=== PATIENT | male | born 1950 | race Caucasian/White ===

== ENCOUNTER 2016-11-21 00:42 | Emergency (ER) | payer MEDICARE ==
[2016-11-21] MEDS ORDERED: IPRATROPIUM/ALBUTEROL 0.5-2.5 MG/3 ML AMPUL NEB ONE ×2 (01:02→03:03)
--- NOTE | 2016-11-21 01:06 | ER Document Report ---
ED Medical Screen (RME) - General Stated Complaint: CHEST PAIN Time seen by provider: 01:00 Notes: 66 year old male, chief complaint of chest pain worse over the past 2 days, present intermittently since a rib injury on Nina. States he got dizzy prior to arrival but did not pass out. Short of breath with some wheezing, hx COPD, liver cirrhosis, chronic back pain (on pain management). Current chest pain with cough or deep breath. - Related Data Allergies/Adverse Reactions: No Known Allergies Allergy (Verified 11/21/16 01:01) Physical Exam - Respiratory Respiratory status: No respiratory distress Breath sounds: Decreased air movement, Wheezing Course - Re-evaluation Re-evalutation: Patient reports he cannot take aspirin and refuses.
[2016-11-21 02:03] LABS: ABSOLUTE BASOPHILS # (AUTO) 0.1 10^3/uL (0.0-0.2); ABSOLUTE EOSINOPHILS # (AUTO) 0.3 10^3/uL (0.0-0.6); ABSOLUTE LYMPHOCYTES (AUTO) 1.1 10^3/uL (0.5-4.7); ABSOLUTE MONOCYTES (AUTO) 0.6 10^3/uL (0.1-1.4); ABSOLUTE NEUT (AUTO) 4.3 10^3/uL (1.7-8.2); EOSINOPHILS % (AUTO) 3.9 % (0-6); HEMATOCRIT 36.3 % (37.9-51.0); HEMOGLOBIN 12.2 g/dL (13.5-17.0); HGB HCT DIFFERENCE 0.3; LYMPHOCYTES % (AUTO) 17.4 % (13-45); MEAN CORPUSCULAR HEMOGLOBIN 31.1 pg (27.0-33.4); MEAN CORPUSCULAR HGB CONC 33.5 g/dL (32.0-36.0); MEAN CORPUSCULAR VOLUME 93 fl (80-97); RED BLOOD COUNT 3.92 10^6/uL (4.35-5.55); RED CELL DISTRIBUTION WIDTH 13.4 % (11.5-14.0); SEGMENTED NEUTROPHILS % (AUTO) 67.7 % (42-78); WHITE BLOOD COUNT 6.4 10^3/uL (4.0-10.5)
[2016-11-21 02:25] LABS: ALANINE AMINOTRANSFERASE 70 U/L (21-72); ALBUMIN 3.3 g/dL (3.5-5.0); ALKALINE PHOSPHATASE 70 U/L (38-126); ANION GAP 5 (5-19); ASPARTATE AMINO TRANSFERASE 85 U/L (17-59); BILIRUBIN,TOTAL 0.7 mg/dL (0.2-1.3); BLOOD UREA NITROGEN 16 mg/dL (7-20); CALCIUM 8.8 mg/dL (8.4-10.2); CARBON DIOXIDE 27 mmol/L (22-30); CHLORIDE 97 mmol/L (98-107); CREATINE KINASE 31 U/L (55-170); CREATININE RESULT 0.64 mg/dL (0.52-1.25); GLUCOSE 90 mg/dL (75-110); POTASSIUM 4.5 mmol/L (3.6-5.0); SODIUM 129.3 mmol/L (137-145); TOTAL PROTEIN 6.6 g/dL (6.3-8.2)
[2016-11-21 02:48] LABS: CREATINE KINASE MB 0.57 ng/mL (<4.55)
[2016-11-21 02:49] LABS: TROPONIN I < 0.012 ng/mL
--- NOTE | 2016-11-21 02:52 | ER Document Report ---
ED General - General Mode of Arrival: Ambulatory Information source: Patient TRAVEL OUTSIDE OF THE [place] IN LAST 30 DAYS: No - HPI Patient complains to provider of: Chest Pain Onset: Other - 3-4 weeks ago Associated symptoms: Other - see above Exacerbated by: Deep breathing <MARIAM RODRIGUEZ - Last Filed: 11/21/16 03:36> <SONIACHIDI GEO - Last Filed: 11/21/16 05:14> - General Chief Complaint: Chest Pain Stated Complaint: CHEST PAIN Notes: 66 year old male with history of liver cirrhosis, COPD, and esophageal varices presents to the ED complaining of right shoulder pain and progressively worsening chest pain that started 3-4 weeks ago after rolling over a wrench on his left chest. Patient states that he cracked a rib on the left side. Patient is additionally complaining of shortness of breath and dizziness that started tonight and a productive cough that started 3-4 days ago. Patient took a breathing treatment at home and states that it "didn't help for very long." Patient states that his chest pain is exacerbated with deep breathing. Patient denies bloody stool, vomiting, or fever. Patient is on a beta florentino, "water pills", and oxycotin for chronic back pain. (MARIAM RODRIGUEZ) - Related Data Allergies/Adverse Reactions: No Known Allergies Allergy (Verified 11/21/16 01:01) Past Medical History - General Information source: Patient - Social History Smoking Status: Current Every Day Smoker Chew tobacco use (# tins/day): No Frequency of alcohol use: None Drug Abuse: Other Family History: Reviewed & Not Pertinent Patient has suicidal ideation: No Patient has homicidal ideation: No Pulmonary Medical History: Reports: Hx COPD EENT Medical History: Reports: Throat - esophageal varices GI Medical History: Reports: Hx Cirrhosis <MARIAM RODRIGUEZ - Last Filed: 11/21/16 03:36> Review of Systems - Review of Systems Constitutional: No symptoms reported. denies: Fever EENT: No symptoms reported Cardiovascular: See HPI, Dizziness Respiratory: See HPI, Cough, Short of breath, Sputum Gastrointestinal: No symptoms reported. denies: Vomiting, Black stools Genitourinary: No symptoms reported Male Genitourinary: No symptoms reported Musculoskeletal: No symptoms reported Skin: No symptoms reported Hematologic/Lymphatic: No symptoms reported Neurological/Psychological: No symptoms reported -: Yes All other systems reviewed and negative <MARIAM RODRIGUEZ - Last Filed: 11/21/16 03:36> Physical Exam - General General appearance: Alert In distress: None - HEENT Head: Normocephalic, Atraumatic Eyes: Normal Extraocular movements intact: Yes Pupils: PERRL - Respiratory Respiratory status: No respiratory distress Chest status: Tender - see below Breath sounds: Decreased air movement - decreased breath sounds to the right base, Wheezing - bilaterally Chest palpation: Tender - tenderness to palpation of the left lateral wall - Cardiovascular Rhythm: Regular Heart sounds: Normal auscultation - Abdominal Inspection: Normal - Back Back: Normal - Extremities General upper extremity: No: Normal inspection - see shoulder exam below General lower extremity: Normal inspection, Normal ROM Shoulder: Tender - right medial scapula tenderness to palpation. No: Normal - Neurological Neuro grossly intact: Yes Cognition: Normal Orientation: AAOx4 [place] Coma Scale Eye Opening: Spontaneous [place] Coma Scale Verbal: Oriented Mannie Coma Scale Motor: Obeys Commands [place] Coma Scale Total: 15 Speech: Normal - Psychological Associated symptoms: Normal affect, Normal mood - Skin Skin Temperature: Warm Skin Moisture: Dry Skin Color: Normal <MARIAM RODRIGUEZ - Last Filed: 11/21/16 03:36> <CHIDI SCOTT - Last Filed: 11/21/16 05:14> - Vital signs Vitals: Temp Pulse Resp BP Pulse Ox 98.4 F 72 16 128/80 H 92 11/21/16 01:01 11/21/16 01:01 11/21/16 01:01 11/21/16 01:01 11/21/16 01:01 (MARIAM RODRIGUEZ) (CHIDI SCOTT) Course - Laboratory Result Diagrams: 11/21/16 01:51 11/21/16 01:51 <MARIAM RODRIGUEZ - Last Filed: 11/21/16 03:36> - Laboratory Result Diagrams: 11/21/16 01:51 11/21/16 01:51 - Diagnostic Test Radiology reviewed: Reports reviewed - EKG Interpretation by Nc EKG shows normal: Sinus rhythm Rate: Normal Rhythm: NSR <CHIDI SCOTT - Last Filed: 11/21/16 05:14> - Re-evaluation Re-evalutation: 11/21/16 05:08 Patient is a 66-year-old male who comes in complaining of cough, difficulty breathing, chest pain. Patient had rolled over a wrench a few weeks ago and has had pain in his left side since then. Patient was wheezing initially. That has resolved after nebulizer treatments and steroids. Patient has a right- sided pneumonia. Patient was also slightly hyponatremic. Given normal saline. Patient has been ambulated around the department and maintains his oxygen saturation 90%. He'll be discharged home with Levaquin. Return immediately if any worsening or concerning symptoms. Understands and agrees with plan. Patient has reproducible left-sided chest wall pain and a CT this showing a rib fracture. Troponin is negative. EKG within normal limits. Stable for discharge home. (CHIDI SCOTT) - Vital Signs Vital signs: Temp Pulse Resp BP Pulse Ox 98.4 F 72 17 99/66 L 93 11/21/16 01:01 11/21/16 01:01 11/21/16 04:11 11/21/16 03:01 11/21/16 04:11 (MARIAM RODRIGUEZ) (CHIDI SCOTT) - Laboratory Laboratory results interpreted by me: 11/21/16 11/21/16 01:51 01:51 RBC 3.92 L Hgb 12.2 L Hct 36.3 L Plt Count 103 L Sodium 129.3 L Chloride 97 L AST 85 H Creatine Kinase 31 L Albumin 3.3 L (MARIAM RODRIGUEZ) (CHIDI SCOTT) Critical Care Note - Critical Care Note Total time excluding time spent on procedures (mins): 35 - evaluation and management of respiratory distress, multiple re-evaluations, counseling of patient <CHIDI SCOTT - Last Filed: 11/21/16 05:14> Discharge <MARIAM RODRIGUEZ - Last Filed: 11/21/16 03:36> <CHIDI SCOTT - Last Filed: 11/21/16 05:14> - Discharge Clinical Impression: COPD exacerbation, Respiratory distress Pneumonia Qualifiers: Pneumonia type: due to unspecified organism Laterality: right Lung location: middle lobe of lung Qualified Code(s): J18.1 - Lobar pneumonia, unspecified organism Rib fracture Qualifiers: Encounter type: initial encounter Rib fracture type: single rib Fracture type: closed Laterality: left Qualified Code(s): S22.32XA - Fracture of one rib, left side, initial encounter for closed fracture Condition: Stable Disposition: HOME, SELF-CARE Instructions: Pneumonia ([facility]), Chronic Obstructive Lung Disease ([facility]), Rib Injuries and Fractures ([facility]) Prescriptions: Albuterol Sulfate [Proair HFA Inhalation Aerosol 8.5 gm MDI] 2 puff IH Q4H PRN # 1 mdi PRN Reason: Levofloxacin [Levaquin 750 mg Tablet] 750 mg PO DAILY #5 tablet Prednisone 40 mg PO DAILY #6 tablet Forms: Smoking Cessation Education Scribe Attestation: 11/21/16 05:14 I personally performed the services described in the documentation, reviewed and edited the documentation which was dictated to the scribe in my presence, and it accurately records my words and actions. (CHIDI SCOTT)
[2016-11-21] MEDS ORDERED: METHYLPREDNISOLONE INJ 125 MG/2 ML SDV IV ONE (03:03)
[2016-11-21] MEDS ORDERED: LEVOFLOXACIN 750 MG/D5W RTU 150 ML IV ONE (03:03)
[2016-11-21] MEDS ORDERED: NORMAL SALINE 1000 ML 1,000 ML IV ONE (03:03)
[2016-11-21] MEDS ORDERED: ALBUTEROL SULFATE HFA (90 MCG/PUFF) 8 GM MDI (1 MDI/ER DISP) IH ONE (05:12)
[2016-11-21 05:54] VITALS: BP 130/80
--- NOTE | 2016-11-21 14:52 | EKG REPORT ---
SEVERITY:- NORMAL ECG - SINUS RHYTHM : Confirmed by: Regis Jc 21-Nov-2016 14:51:29
== END 2016-11-21 05:56 | disposition home or self-care (01) ==
LOC: ER 00:42
DX: S22.32XA Fracture of one rib, left side, initial encounter for closed fracture (principal); W22.8XXA Striking against or struck by other objects, initial encounter; J18.1 Lobar pneumonia, unspecified organism; J44.1 Chronic obstructive pulmonary disease with (acute) exacerbation; E87.1 Hypo-osmolality and hyponatremia; M25.511 Pain in right shoulder; R07.9 Chest pain, unspecified; R06.02 Shortness of breath; R42 Dizziness and giddiness; R05 Cough; M54.9 Dorsalgia, unspecified; G89.29 Other chronic pain; Z79.891 Long term (current) use of opiate analgesic; Z79.899 Other long term (current) drug therapy; F17.200 Nicotine dependence, unspecified, uncomplicated
CPT/HCPCS: 93005; 94640 ×2; 99291; 96375; 96365; 36415; 87040; 82553; 82550; 85025; 80053; 84484; 71101; 71275; 93010; J2930; J7030; J1956; J3490; A9270; J7620

== ENCOUNTER → 2018-05-24 | Outpatient (CLI) | payer MEDICARE ==
--- NOTE | 2018-05-24 11:00 | RADIOLOGY REPORT (SQ) ---
EXAM DESCRIPTION: MRI ABDOMEN WITHOUT COMPLETED DATE/TIME: 05/24/2018 9:13 am REASON FOR STUDY: ABN FINDINGS ON DIAGNOSTIC IMAGING R93.8 ABNORMAL FINDINGS ON DIAGNOSTIC IMAGING OF BODY STRUCT COMPARISON: CT angio chest 11/21/2016 TECHNIQUE: Noncontrast MRCP. Source and MIP images reviewed. LIMITATIONS: None. FINDINGS: GALLBLADDER: Tiny 3 to 4 mm filling defects are present in the gallbladder likely tiny sto gold. Polyps are possible. INTRAHEPATIC DUCTS: Nondilated. EXTRAHEPATIC DUCTS: Common bile duct at the pancreatic head 10 to 11 mm in diameter. No biliary duct al filling defects worrisome for retained stones. PANCREAS: Trace retroperitoneal fluid in the peripancreatic fat, axial T2 series 5, images 14-16, que stion mild pancreatitis without peripancreatic well-circumscribed pseudocyst. LIVER, SPLEEN, KIDNEYS, ADRENALS: Liver is small with a nodular contour from cirrhosis. Spleen at le ast 14 to 15 cm in length. Trace right upper quadrant ascites. There are varices along the distal e sophagus. Adrenal glands normal size, no gross masses. VESSELS: Distal esophageal varices. No abdominal aortic aneurysm in the field of view. Normal flow signal in the main portal vein and hepatic veins. LUNG BASES: Trace left pleural effusion OTHER: No other significant finding. IMPRESSION: Minimal inflammation in the retroperitoneal fat along the body and tail of the pancreas, question mild pancreatitis Tiny stones or polyps in the gallbladder. Extrahepatic biliary ductal prominence without common duct stones Small liver with nodular contour, splenomegaly with varices, trace right upper quadrant free fluid co mpatible with cirrhosis and portal hypertension. TECHNICAL DOCUMENTATION: JOB ID: [id number] [employer]- All Rights Reserved Reading location - IP/workstation name: [facility]
== END ==
LOC: RAD 07:38
PROVIDERS: ATTEND Internal Medicine Gastroenterology
DX: R93.8 Abnormal findings on diagnostic imaging of other specified body structures (principal); K82.4 Cholesterolosis of gallbladder; K74.60 Unspecified cirrhosis of liver; K76.6 Portal hypertension; I85.10 Secondary esophageal varices without bleeding
CPT/HCPCS: 74181

== ENCOUNTER 2018-09-15 12:50 | Emergency (ER) | payer MEDICARE ==
--- NOTE | 2018-09-15 13:23 | EKG REPORT ---
SEVERITY:- OTHERWISE NORMAL ECG - SINUS RHYTHM ATRIAL PREMATURE COMPLEX : Confirmed by: Enoch Alfaro MD 15-Sep-2018 13:23:04
--- NOTE | 2018-09-15 13:32 | ER Document Report ---
ED General <ROSIBEL CARBAJAL - Last Filed: 09/15/18 15:35> - General Mode of Arrival: Ambulatory Information source: Patient TRAVEL OUTSIDE OF THE [place] IN LAST 30 DAYS: No <RUKHSANA HUGHES - Last Filed: 09/15/18 16:53> - General Chief Complaint: Chest Pain Stated Complaint: CHEST PAIN Time Seen by Provider: 09/15/18 12:57 Notes: Patient is a 68 year old male with COPD, liver cirrhosis, esophageal varices, ascites and a history of hepatitis C presents to the emergency department complaining of left upper chest pain onset approximately 1 month ago. Patient describes the pain as "someone stabbing a spoon in my chest and twisting it" and states it radiates under his left armpit. He also states the pain is exacerbated with deep breathing and causes shortness of breath. Patient states he presented to his PCP, Dr. Armas, and was told he had an elevated WBC and D- dimer and was instructed to come to the ED. Patient states he has tried steroids and antibiotics but nothing has helped. Patient was prescribed a 10 day course of Doxycycline, and 7 day course of Prednisone 20mg daily on 09/14/2018. He was also prescribed a Solu-Medrol Dosepak on September 01, 2018. (RUKHSANA HUGHES) - Related Data Allergies/Adverse Reactions: No Known Allergies Allergy (Verified 09/15/18 12:52) Past Medical History - General Information source: Patient - Social History Smoking Status: Current Every Day Smoker Chew tobacco use (# tins/day): No Frequency of alcohol use: Rare Drug Abuse: None Family History: Reviewed & Not Pertinent Patient has suicidal ideation: No Patient has homicidal ideation: No - Past Medical History Cardiac Medical History: Reports: Hx Hypertension Pulmonary Medical History: Reports: Hx COPD GI Medical History: Reports: Hx Cirrhosis, Hx Gastroesophageal Reflux Disease, Hx Hepatitis - Hep. C, states received treatment for this Past Surgical History: Reports: Hx Orthopedic Surgery - back <RUKHSANA HUGHES - Last Filed: 09/15/18 16:53> Review of Systems - Review of Systems Constitutional: No symptoms reported EENT: No symptoms reported Cardiovascular: See HPI, Chest pain - Left upper anterior chest wall Respiratory: See HPI, Short of breath Gastrointestinal: No symptoms reported Genitourinary: No symptoms reported Male Genitourinary: No symptoms reported Musculoskeletal: No symptoms reported Skin: No symptoms reported Hematologic/Lymphatic: No symptoms reported Neurological/Psychological: No symptoms reported -: Yes All other systems reviewed and negative <ELLENRUKHSANA HARRISON - Last Filed: 09/15/18 16:53> Physical Exam <RAVENROSIBEL - Last Filed: 09/15/18 15:35> <ELLEN,TAMWING - Last Filed: 09/15/18 16:53> - Vital signs Vitals: Resp 16 09/15/18 13:02 - Notes Notes: GENERAL: Alert, interacts well. No acute distress. HEAD: Normocephalic, atraumatic. EYES: Pupils equal, round, and reactive to light. Extraocular movements intact. ENT: Oral mucosa moist, tongue midline. NECK: Full range of motion. Supple. Trachea midline. LUNGS: Wheezing and rhonchi. No respiratory distress. Left upper anterior chest wall tender to palpation, reproduces chief complaint. HEART: Regular rate and rhythm. No murmurs, gallops, or rubs. ABDOMEN: Soft, non-tender. Distended. Bowel sounds present in all 4 quadrants. EXTREMITIES: Moves all 4 extremities spontaneously. No edema, radial and dorsalis pedis pulses 2/4 bilaterally. No cyanosis. NEUROLOGICAL: Alert and oriented x3. Normal speech. PSYCH: Normal affect, normal mood. SKIN: Warm, dry, normal turgor. No rashes or lesions noted. (ELLENRUKHSANA) Course - Laboratory Result Diagrams: 09/15/18 13:07 09/15/18 13:07 - Diagnostic Test Radiology reviewed: Image reviewed, Reports reviewed - CTA chest does not show pulmonary embolus. There are no other abnormalities to explain the patient's pain. <ROSIBEL CARBAJAL - Last Filed: 09/15/18 15:35> - Laboratory Result Diagrams: 09/15/18 13:07 09/15/18 13:07 <ELLEN,TAMWING - Last Filed: 09/15/18 16:53> - Vital Signs Vital signs: Temp Pulse Resp BP Pulse Ox 97.9 F 13 127/77 H 100 09/15/18 13:22 09/15/18 15:01 09/15/18 15:00 09/15/18 15:01 - Laboratory Laboratory results interpreted by me: 09/15/18 09/15/18 09/15/18 13:07 13:07 13:07 WBC 24.7 H MCHC 36.2 H RDW 14.5 H Seg Neuts % (Manual) 92 H Lymphocytes % (Manual) 7 L Monocytes % (Manual) 1 L Abs Neuts (Manual) 22.7 H D-Dimer 2.48 H Sodium 128.7 L Potassium 5.1 H Chloride 91 L Glucose 126 H Creatine Kinase 23 L Discharge <ROSIBEL CARBAJAL - Last Filed: 09/15/18 15:35> <RUKHSANA HUGHES - Last Filed: 09/15/18 16:53> - Discharge Clinical Impression: Anterior chest wall pain Condition: Stable Disposition: HOME, SELF-CARE Additional Instructions: Chest Wall Pain: Your chest pain has been diagnosed as coming from the chest wall. This is often caused by straining the muscles or joints in the chest during physical activity, direct trauma, coughing, or vigorous vomiting. Occasionally, no cause can be found. Rest from strenuous physical activity. This kind of chest pain is usually made worse by movement of the chest. If the pain is new, and seems to be due to muscle strain, cold packs can help. Otherwise, apply gentle warmth to the painful area for 15 minutes every hour or two. You should contact the doctor immediately if things change. Further evaluation is needed if you develop a fever or cough, if the nature of the pain changes, or if you become short of breath. The CT scan does not show evidence of blood clots or any other explanation for your chest wall pain. The physical exam did seem to confirm that the pain is coming from the anterior chest wall, ribs and muscles and not from structures on the inside of the chest cavity. The elevated d-dimer is most likely caused by your liver disease. Follow-up with Dr. Armas this week to review the CT findings and develop a management plan for your chest wall pain RETURN TO THE EMERGENCY ROOM IF ANY NEW OR WORSENING SYMPTOMS. Referrals: TONYA ARMAS MD [Primary Care Provider] - Follow up in 3-5 days Scribjessy Attestation: 09/15/18 14:47 I personally performed the services described in the documentation, reviewed and edited the documentation which was dictated to the scribe in my presence, and it accurately records my words and actions. (ROSIBEL CARBAJAL) Scribe Documentation - Scribe Written by Tristin:: Tristin Cervantes, 09/15/2018 13:35 acting as scribe for :: Raven <RUKHSANA HUGHES - Last Filed: 09/15/18 16:53>
[2018-09-15 13:41] LABS: INTERNATIONAL RATION (INR) 1.02; PROTHROMBIN TIME 13.9 SEC (11.4-15.4)
[2018-09-15 13:42] LABS: PARTIAL THROMBOPLASTIN TIME 33.2 SEC (23.5-35.8)
[2018-09-15 13:43] LABS: HEMATOCRIT 40.1 % (37.9-51.0); HEMOGLOBIN 14.5 g/dL (13.5-17.0); MEAN CORPUSCULAR HEMOGLOBIN 31.7 pg (27.0-33.4); MEAN CORPUSCULAR HGB CONC 36.2 g/dL (32.0-36.0); MEAN CORPUSCULAR VOLUME 88 fl (80-97); PLATELET COUNT 376 10^3/uL (150-450); RED BLOOD COUNT 4.58 10^6/uL (4.35-5.55); RED CELL DISTRIBUTION WIDTH 14.5 % (11.5-14.0); WHITE BLOOD COUNT 24.7 10^3/uL (4.0-10.5)
[2018-09-15 13:44] LABS: D-DIMER 2.48 ug/mL (0.00-0.50)
[2018-09-15 13:47] LABS: ALANINE AMINOTRANSFERASE 37 U/L (21-72); ALBUMIN 4.5 g/dL (3.5-5.0); ALKALINE PHOSPHATASE 66 U/L (38-126); ANION GAP 15 (5-19); ASPARTATE AMINO TRANSFERASE 29 U/L (17-59); BILIRUBIN,DIRECT 0.3 mg/dL (0.0-0.4); BILIRUBIN,TOTAL 0.7 mg/dL (0.2-1.3); BLOOD UREA NITROGEN 14 mg/dL (7-20); CARBON DIOXIDE 23 mmol/L (22-30); CHLORIDE 91 mmol/L (98-107); CREATINE KINASE 23 U/L (55-170); GLUCOSE 126 mg/dL (75-110); POTASSIUM 5.1 mmol/L (3.6-5.0); SODIUM 128.7 mmol/L (137-145)
--- NOTE | 2018-09-15 13:49 | RADIOLOGY REPORT (SQ) ---
EXAM DESCRIPTION: CHEST SINGLE VIEW COMPLETED DATE/TIME: 09/15/2018 1:39 pm REASON FOR STUDY: Pleuritic chest pain, COPD COMPARISON: 11/21/2016 EXAM PARAMETERS: NUMBER OF VIEWS: One view. TECHNIQUE: Single frontal radiographic view of the chest acquired. RADIATION DOSE: NA LIMITATIONS: None. FINDINGS: LUNGS AND PLEURA: There is hyperexpansion. No consolidation or pleural effusions. Blunti ng of the left costophrenic angle is stable from 2017 and most likely represents pleural thickening. MEDIASTINUM AND HILAR STRUCTURES: No masses. Contour normal. HEART AND VASCULAR STRUCTURES: Heart normal in size. Normal vasculature. BONES: No acute findings. HARDWARE: None in the chest. OTHER: No other significant finding. IMPRESSION: COPD. No acute findings. TECHNICAL DOCUMENTATION: JOB ID: [id number] [employer]- All Rights Reserved Reading location - IP/workstation name: [email or web address]
[2018-09-15 14:00] LABS: CREATINE KINASE MB 1.36 ng/mL (<4.55)
[2018-09-15 14:02] LABS: ABSOLUTE LYMPHOCYTES# (MANUAL) 1.7 10^3/uL (0.5-4.7); ABSOLUTE MONOCYTES # (MANUAL) 0.2 10^3/uL (0.1-1.4); ABSOLUTE NEUTROPHILS# (MANUAL) 22.7 10^3/uL (1.7-8.2); BASOPHILS % (MANUAL) 0 % (0-2); EOSINOPHILS % (MANUAL) 0 % (0-6); LYMPHOCYTES % (MANUAL) 7 % (13-45); MONOCYTES % (MANUAL) 1 % (3-13); POIKILOCYTOSIS 1+; SEGMENTED NEUTROPHILS % (MAN) 92 % (42-78); TOTAL CELLS COUNTED 100
[2018-09-15 14:03] LABS: OVALOCYTES SLIGHT; PLATELET COMMENT ADEQUATE; SCHISTOCYTES 1+
[2018-09-15 14:04] LABS: TROPONIN I < 0.012 ng/mL
--- NOTE | 2018-09-15 15:07 | RADIOLOGY REPORT (SQ) ---
EXAM DESCRIPTION: CTA CHEST COMPLETED DATE/TIME: 09/15/2018 2:50 pm REASON FOR STUDY: Left-sided pleuritic chest pain w/elevated d-dimer COMPARISON: Chest x-ray dated 09/15/2018 TECHNIQUE: CT scan of the chest performed using helical scanning technique with dynamic intravenous contrast injection. Images reviewed with lung, soft tissue and bone windows. Reconstructed coronal and sagittal MPR images reviewed. Additional 3 dimensional post-processing performed to develop Maximal Intensity Projection images (ND P). All images stored on PACS. All CT scanners at this facility use dose modulation, iterative reconstruction, and/or weight based d osing when appropriate to reduce radiation dose to as low as reasonably achievable (ALARA). [facility]: Dose Right [facility]: CareDose [facility]: Dose Right [facility]: Teradose 4D [facility]: SystemsNet CONTRAST TYPE AND DOSE: 70 mL Omnipaque 350 Contrast bolus optimized for the pulmonary arteries. Not diagnostic for the aorta. RENAL FUNCTION: GFR > 60. RADIATION DOSE: CT Rad equipment meets quality standard of care and radiation dose reduction techniq ues were employed. CTDIvol: 13.2 - 14.3 mGy. DLP: 591 mGy-cm. . LIMITATIONS: None. FINDINGS: LUNGS AND PLEURA: No masses, infiltrates, or pneumothorax. No pleural effusions or pleura l calcifications. Pleural and parenchymal scarring is identified in the left lung base. AORTA AND GREAT VESSELS: No aneurysm. Contrast bolus not optimized for the aorta. HEART: No pericardial effusion. No significant coronary artery calcifications. PULMONARY ARTERIES: No emboli visualized in the main pulmonary arteries or the segmental branches. HILAR AND MEDIASTINAL STRUCTURES: No identified masses or abnormal nodes. HARDWARE: None in the chest. UPPER ABDOMEN: The spleen is incompletely visualized but appears enlarged without focal splenic abnor malities being identified THYROID AND OTHER SOFT TISSUES: No masses. No adenopathy. BONES: No acute or significant finding. 3D MIPS: Confirm above findings. OTHER: No other significant finding. IMPRESSION: No evidence for pulmonary embolic disease. No acute consolidations or pleural effusions are identified. The spleen is incompletely visualized but appears enlarged without focal splenic ab normalities being identified. Other findings as noted above COMMENT: Quality ID # [id number]: Final reports with documentation of one or more dose reduction techniques (e.g., Automated exposure control, adjustment of the mA and/or kV according to patient size, use of iterative reconstruction technique) TECHNICAL DOCUMENTATION: JOB ID: [id number] [employer]- All Rights Reserved Reading location - IP/workstation name: [email or web address]
[2018-09-15 15:30] VITALS: BP 127/77
== END 2018-09-15 16:09 | disposition home or self-care (01) ==
LOC: ER 12:50
DX: R07.89 Other chest pain (principal); J44.9 Chronic obstructive pulmonary disease, unspecified; R06.02 Shortness of breath; I10 Essential (primary) hypertension
CPT/HCPCS: 36415; 71045; 71275; 80053; 82550; 82553; 84484; 85025; 85379; 85610; 85730; 93005; 93010; 99285

== ENCOUNTER → 2019-03-10 | Outpatient (CLI) | payer MEDICARE ==
--- NOTE | 2019-03-10 14:36 | RADIOLOGY REPORT (SQ) ---
EXAM DESCRIPTION: U/S ABDOMEN LIMITED W/O DOP COMPLETED DATE/TIME: 03/10/2019 2:17 pm REASON FOR STUDY: ASCITES DUE TO ALCOHOLIC CIRRHOSIS K70.31 ALCOHOLIC CIRRHOSIS OF LIVER WITH ASCIT ES COMPARISON: CT chest 09/15/2018 MR abdomen 05/24/2018 TECHNIQUE: Dynamic and static grayscale images acquired of the abdomen all 4 quadrants to evaluate f or ascites and recorded on PACS. Additional selected color Doppler and spectral images recorded. LIMITATIONS: None. FINDINGS: 4 quadrant limited abdominal ultrasound was performed for quantification of ascites. There is trace free peritoneal fluid in all 4 quadrants. Patient has a nodular liver contour from cirrhosis. Splenomegaly, spleen 18.5 cm in greatest length. IMPRESSION: Trace free peritoneal fluid. Splenomegaly TECHNICAL DOCUMENTATION: JOB ID: [id number] [employer]- All Rights Reserved Reading location - IP/workstation name: [email or web address]
== END ==
LOC: RAD 11:57
PROVIDERS: ATTEND Family Medicine
DX: K70.31 Alcoholic cirrhosis of liver with ascites (principal)
CPT/HCPCS: 76705

== ENCOUNTER → 2019-03-16 | Outpatient (CLI) | payer MEDICARE ==
--- NOTE | 2019-03-16 13:54 | RADIOLOGY REPORT (SQ) ---
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 No oral contrast. Images reviewed with lung, soft tissue, and bone windows. Reconstructed coronal and sagittal MPR images reviewed. Delayed images for evaluation of the urinary system also acquired. All images stored on PACS. All CT scanners at this facility use dose modulation, iterative reconstruction, and/or weight based d osing when appropriate to reduce radiation dose to as low as reasonably achievable (ALARA). [facility]: Dose Right [facility]: CareDose [facility]: Dose Right [facility]: Teradose 4D [facility]: Curate.Us CONTRAST TYPE AND DOSE: contrast/concentration: Isovue 350.00 mg/ml; Total Contrast Delivered: 72.0 ml; Total Saline Delivered: 66.0 ml Omnipaque 350 72 cc RENAL FUNCTION: Creatinine 0.7 RADIATION DOSE: CT Rad equipment meets quality standard of care and radiation dose reduction techniq ues were employed. CTDIvol: 4.0 - 4.6 mGy. DLP: 438 mGy-cm.. LIMITATIONS: None. FINDINGS: LOWER CHEST: Moderate right-sided pleural effusion. Esophageal varices noted. LIVER: Cirrhotic hepatic morphology. There is moderate volume perihepatic ascites. SPLEEN: Splenomegaly measuring 13.1 cm. There is a linear peripheral area of hypoattenuation along t he lateral aspect, new from prior. PANCREAS: No masses. No significant calcifications. No adjacent inflammation or peripancreatic fluid collections. Pancreatic duct not dilated. GALLBLADDER: No identified stones by CT criteria. No inflammatory changes to suggest cholecystitis. ADRENAL GLANDS: No significant masses or asymmetry. RIGHT KIDNEY AND URETER: No solid masses. No significant calcifications. No hydronephrosis or hyd roureter. LEFT KIDNEY AND URETER: No solid masses. No significant calcifications. No hydronephrosis or hydr oureter. AORTA AND VESSELS: Aortoiliac atherosclerosis. No aneurysm. Patent celiac, SMA, bilateral renals an d ISHMAEL. Multiple upper abdominal portosystemic collaterals noted. RETROPERITONEUM: No retroperitoneal adenopathy, hemorrhage or masses. BOWEL AND PERITONEAL CAVITY: No evidence of intestinal obstruction. No focal bowel wall thickening. APPENDIX: Normal. PELVIS: Large volume pelvic ascites. Decompressed urinary bladder. No lymphadenopathy. ABDOMINAL WALL: No masses. No hernias. BONES: No significant or acute findings. Posterior fusion hardware at L4-5. OTHER: No other significant finding. IMPRESSION: 1. Moderate volume ascites, predominantly perihepatic and deep pelvic. 2. Cirrhotic hepatic morphology with associated sequelae including upper abdominal portosystemic kulwant ices and splenomegaly. 3. New linear area of hypoattenuation within the lateral splenic parenchyma new from prior. Differe ntial includes splenic infarct, splenic laceration or focal lesion with the former favored. 4. Moderate volume right pleural effusion. TECHNICAL DOCUMENTATION: JOB ID: [id number] Quality ID # [id number]: Final reports with documentation of one or more dose reduction techniques (e.g., Au tomated exposure control, adjustment of the mA and/or kV according to patient size, use of iterative reconstruction technique) 2010 [employer]- All Rights Reserved Reading location - IP/workstation name: [email or web address]
== END ==
LOC: RAD 12:41 → MERGE 13:30
PROVIDERS: ATTEND Family Medicine
DX: K74.60 Unspecified cirrhosis of liver (principal); R16.1 Splenomegaly, not elsewhere classified; Z86.19 Personal history of other infectious and parasitic diseases
CPT/HCPCS: 74177; 82565

== ENCOUNTER 2019-04-15 07:39 | Day surgery (SDC) | payer MEDICARE ==
[2019-04-15 08:51] LABS: HEMATOCRIT 36.9 % (37.9-51.0); HEMOGLOBIN 12.8 g/dL (13.5-17.0); MEAN CORPUSCULAR HEMOGLOBIN 28.5 pg (27.0-33.4); MEAN CORPUSCULAR HGB CONC 34.7 g/dL (32.0-36.0); MEAN CORPUSCULAR VOLUME 82 fl (80-97); PLATELET COUNT 611 10^3/uL (150-450); RED BLOOD COUNT 4.49 10^6/uL (4.35-5.55); RED CELL DISTRIBUTION WIDTH 14.7 % (11.5-14.0); WHITE BLOOD COUNT 15.1 10^3/uL (4.0-10.5)
[2019-04-15 08:53] LABS: INTERNATIONAL RATION (INR) 1.14; PROTHROMBIN TIME 15.2 SEC (11.4-15.4)
[2019-04-15 08:54] LABS: PARTIAL THROMBOPLASTIN TIME 37.9 SEC (23.5-35.8)
[2019-04-15 10:00] LABS: BLOOD UREA NITROGEN 10 mg/dL (7-20)
[2019-04-15 11:41] VITALS: BP 94/58
--- NOTE | 2019-04-15 13:07 | RADIOLOGY REPORT (SQ) ---
EXAM DESCRIPTION: U/S ABD PARACENTESIS COMPLETED DATE/TIME: 04/15/2019 11:14 am REASON FOR STUDY: ASCITES R18.8 OTHER ASCITES Z79.01 FOLDER TIER (CURRENT) USE OF ANTICOAGULANTS COMPARISON: None. LIMITATIONS: None. PROCEDURE: Procedure, risks, benefit, and alternative explained to patient who then gave written con sent. The right lower abdominal wall marked using ultrasound guidance. A time-out was called for co rrect marking verification. Abdomen prepped and draped using sterile technique. Local anesthesia ach ieved using 10 ml of 1% lidocaine injection. A 6fr Pute-V-Rrchzzfv set was introduced into the perit marie cavity. Fluid was drained. The catheter was removed and entry site was covered with sterile b andage. No immediate complications noted. Images acquired during the procedure were stored on PACS. FINDINGS: ENTRY SITE: Right lower quadrant. FLUID VOLUME: 550 mL. FLUID ANALYSIS: Straw-colored fluid. OTHER: Fluid sent to the lab for testing. IMPRESSION: SUCCESSFUL ULTRASOUND GUIDED PARACENTESIS. ALTHOUGH THE PATIENT HAD A FAIRLY LARGE AMOU NT OF ASCITES, THE QUANTITY REMOVED WAS LIMITED TO 550 ML AT THE REQUEST OF DR. BAINS BECAUSE THE PAT IENT IS CURRENTLY HYPOTENSIVE. COMMENT: Patient medication list reviewed:Yes- Quality ID# [id number]:Eligible professional attests to docu menting in the medical record they obtained, updated, or reviewed the patient's current medications. TECHNICAL DOCUMENTATION: JOB ID: [id number] [employer]- All Rights Reserved Reading location - IP/workstation name: [email or web address]
[2019-04-15 14:19] LABS: FLUID TYPE PERITONEAL
[2019-04-15 14:20] LABS: FLUID APPEARANCE HAZY; FLUID COLOR YELLOW; FLUID SOURCE ASCITES; FLUID VISCOSITY LIQUID
== END 2019-04-15 11:45 | disposition home or self-care (01) ==
LOC: RAD 07:39
PROVIDERS: ATTEND Internal Medicine Gastroenterology
DX: R18.8 Other ascites (principal); K74.69 Other cirrhosis of liver; B18.2 Chronic viral hepatitis C; Z79.01 Long term (current) use of anticoagulants; R16.1 Splenomegaly, not elsewhere classified; J44.9 Chronic obstructive pulmonary disease, unspecified; J43.9 Emphysema, unspecified; Z79.899 Other long term (current) drug therapy; Z79.51 Long term (current) use of inhaled steroids; I85.00 Esophageal varices without bleeding; J90 Pleural effusion, not elsewhere classified
CPT/HCPCS: 36415; 49083; 82042; 82565; 84520; 85027; 85610; 85730; 88305; 89050

== ENCOUNTER → 2019-04-27 | Outpatient (CLI) | payer MEDICARE ==
--- NOTE | 2019-04-27 10:35 | RADIOLOGY REPORT (SQ) ---
EXAM DESCRIPTION: U/S ABDOMEN LIMITED W/O DOP COMPLETED DATE/TIME: 04/27/2019 7:34 am REASON FOR STUDY: CIRRHOSIS OF LIVER W/O ASCITES (K74.60), OTHER ASCITES (R18.8) K74.60 UNSPECIFIED CIRRHOSIS OF LIVER COMPARISON: None. TECHNIQUE: Dynamic and static grayscale images acquired of the abdomen and recorded on PACS. Additio nal selected color Doppler and spectral images recorded. LIMITATIONS: None. FINDINGS: PANCREAS: Poorly seen. No obvious mass. LIVER: Increased echogenicity. No mass. LIVER VASCULATURE: Normal directional flow of the main portal vein and hepatic veins. GALLBLADDER: No stones. Normal wall thickness. No pericholecystic fluid. ULTRASOUND-DETECTED LARA'S SIGN: Negative. INTRAHEPATIC DUCTS AND COMMON DUCT: CBD and intrahepatic ducts normal caliber. No filling defects. INFERIOR VENA CAVA: Not imaged. AORTA: No aneurysm. The distal aorta was not well seen. RIGHT KIDNEY: Normal size, 10.1 cm. Normal echogenicity. No solid or suspicious masses. No hydroneph rosis. No calcifications. PERITONEAL AND RIGHT PLEURAL SPACE: There is a large amount of ascites. OTHER: No other significant findings. IMPRESSION: Ascites. Fatty liver. TECHNICAL DOCUMENTATION: JOB ID: [id number] [employer]- All Rights Reserved Reading location - IP/workstation name: [email or web address]
== END ==
LOC: RAD 06:52
PROVIDERS: ATTEND Family Medicine
DX: K74.60 Unspecified cirrhosis of liver (principal); R18.8 Other ascites
CPT/HCPCS: 76705

== ENCOUNTER 2019-04-28 12:27 | Day surgery (SDC) | payer MEDICARE ==
[2019-04-28 13:05] LABS: HEMATOCRIT 36.3 % (37.9-51.0); HEMOGLOBIN 12.4 g/dL (13.5-17.0); MEAN CORPUSCULAR HEMOGLOBIN 28.1 pg (27.0-33.4); MEAN CORPUSCULAR HGB CONC 34.1 g/dL (32.0-36.0); MEAN CORPUSCULAR VOLUME 83 fl (80-97); PLATELET COUNT 765 10^3/uL (150-450); RED CELL DISTRIBUTION WIDTH 14.8 % (11.5-14.0); WHITE BLOOD COUNT 16.8 10^3/uL (4.0-10.5)
[2019-04-28 13:20] LABS: INTERNATIONAL RATION (INR) 1.16; PROTHROMBIN TIME 15.4 SEC (11.4-15.4)
[2019-04-28 13:21] LABS: PARTIAL THROMBOPLASTIN TIME 40.5 SEC (23.5-35.8)
[2019-04-28 13:27] LABS: BLOOD UREA NITROGEN 19 mg/dL (7-20)
[2019-04-28] MEDS ORDERED: ALBUMIN HUMAN 75 GM/300 ML RTUINJ IV PRN (16:30)
--- NOTE | 2019-04-28 16:39 | RADIOLOGY REPORT (SQ) ---
EXAM DESCRIPTION: U/S ABD PARACENTESIS COMPLETED DATE/TIME: 04/28/2019 4:12 pm REASON FOR STUDY: ASCITES COMPARISON CT abdomen pelvis 03/16/2019 Paracentesis 03/10/2019, 04/15/2019, 04/27/2019 LIMITATIONS: None. PROCEDURE: After obtaining informed consent, the patient was brought to the ultrasound suite. The p rocedure was performed with the patient on a gurney. Ultrasound was used to identify a prominent poc ket of ascites in the right lower quadrant. An appropriate access site was selected. The patient wa s prepped and draped in usual sterile fashion. The access site was anesthetized with 5 mL of1% lido kika. A Wkih-I-Pvqkygec needle was advanced into the fluid. After aspiration of fluid the needle, the catheter was advanced off the needle into the fluid. A total of 4,200 mL of clear straw-colored fluid was removed. The patient tolerated the procedure well left the department in satisfactory condi tion. IMPRESSION: Successful ultrasound-guided paracentesis Specimens were sent for testing as per Dr. Armas. Patient received 75 g IV albumin post procedure. COMMENT: Patient medication list reviewed: Yes- Quality ID# [id number]:Eligible professional attests to doc umenting in the medical record they obtained, updated, or reviewed the patient's current medications. TECHNICAL DOCUMENTATION: JOB ID: [id number] [employer]- All Rights Reserved Reading location - IP/workstation name: [email or web address]
[2019-04-28 16:49] LABS: FLUID COLOR YELLOW; FLUID SOURCE ASCITES; FLUID TYPE PERITONEAL
[2019-04-28 16:50] LABS: FLUID APPEARANCE SLIGHTLY HAZY; FLUID VISCOSITY SLIGHTLY VISCOUS
[2019-04-28 19:08] VITALS: BP 93/52
[2019-04-30 12:18] LABS: TOTAL PROTEIN BODY FLUID 2.4 g/dL (.)
== END 2019-04-28 18:00 | disposition home or self-care (01) ==
LOC: RAD 12:27
PROVIDERS: ATTEND Family Medicine
DX: K74.60 Unspecified cirrhosis of liver (principal)
CPT/HCPCS: 36415; 87205; 87070; 84520; 82565; 85027; 85610; 85730; 89050; 87075; 82945; 83615; 84157; 88162; 88305 ×2; 49083; P9047

== ENCOUNTER 2019-05-13 11:24 | Day surgery (SDC) | payer MEDICARE ==
[~2019-05-13 11:24] MED LIST: ALBUMIN HUMAN 50 GM/200 ML RTUINJ IV PRN
[2019-05-13 12:32] LABS: HEMOGLOBIN 12.7 g/dL (13.5-17.0); MEAN CORPUSCULAR HEMOGLOBIN 27.6 pg (27.0-33.4); MEAN CORPUSCULAR HGB CONC 33.5 g/dL (32.0-36.0); MEAN CORPUSCULAR VOLUME 82 fl (80-97); PLATELET COUNT 653 10^3/uL (150-450); RED BLOOD COUNT 4.62 10^6/uL (4.35-5.55); RED CELL DISTRIBUTION WIDTH 14.8 % (11.5-14.0); WHITE BLOOD COUNT 17.8 10^3/uL (4.0-10.5)
[2019-05-13 12:36] LABS: INTERNATIONAL RATION (INR) 1.15; PROTHROMBIN TIME 14.8 SEC (11.4-15.4)
[2019-05-13 12:37] LABS: PARTIAL THROMBOPLASTIN TIME 37.1 SEC (23.5-35.8)
[2019-05-13 12:55] LABS: BLOOD UREA NITROGEN 31 mg/dL (7-20)
--- NOTE | 2019-05-13 15:13 | RADIOLOGY REPORT (SQ) ---
EXAM DESCRIPTION: U/S ABD PARACENTESIS COMPLETED DATE/TIME: 05/13/2019 2:53 pm REASON FOR STUDY: ASCITES COMPARISON 04/28/2019, 04/26/2019, 04/15/2019, 03/10/2019 LIMITATIONS: None. PROCEDURE: After obtaining informed consent, the patient was brought to the ultrasound suite. The p rocedure was performed with the patient on a gurney. Ultrasound was used to identify a prominent poc ket of ascites in the right lower quadrant. An appropriate access site was selected. The patient wa s prepped and draped in usual sterile fashion. The access site was anesthetized with 5 mL 1% lidoca ine. A Dbnp-W-Krxemllm needle was advanced into the fluid. After aspiration of fluid the needle, th e catheter was advanced off the needle into the fluid. A total of 6,000 mL of clear yellow fluid was removed. The patient tolerated the procedure well left the department in satisfactory condition. Patient received IV albumin infusion. Specimens of fluid were sent for testing to the lab. [place] xiang nd was used to seal the anterior abdominal wall puncture site. IMPRESSION: Successful ultrasound-guided paracentesis COMMENT: Patient medication list reviewed: Yes- Quality ID# [id number]:Eligible professional attests to doc umenting in the medical record they obtained, updated, or reviewed the patient's current medications. TECHNICAL DOCUMENTATION: JOB ID: [id number] [employer]- All Rights Reserved Reading location - IP/workstation name: [email or web address]
[2019-05-13 15:22] LABS: FLUID APPEARANCE CLEAR; FLUID COLOR YELLOW; FLUID SOURCE ASCITES; FLUID TYPE PERITONEAL
[2019-05-13 15:23] LABS: FLUID VISCOSITY LIQUID
[2019-05-13 16:15] VITALS: BP 87/58
== END 2019-05-13 16:00 | disposition home or self-care (01) ==
LOC: RAD 11:24
PROVIDERS: ATTEND Internal Medicine Gastroenterology
DX: R18.8 Other ascites (principal); K74.69 Other cirrhosis of liver; Z79.01 Long term (current) use of anticoagulants; Z79.51 Long term (current) use of inhaled steroids; J43.9 Emphysema, unspecified; Z79.899 Other long term (current) drug therapy
CPT/HCPCS: 36415; 87205; 87070; 84520; 82565; 85027; 85610; 85730; 89050; 87075; 49083; P9047

== ENCOUNTER 2019-05-23 14:20 | Inpatient (IN) | payer MEDICARE ==
--- NOTE | 2019-05-23 14:48 | ER Document Report ---
ED Medical Screen (RME) - General Chief Complaint: Abnormal Lab Results Stated Complaint: ABNORMAL LABS Time Seen by Provider: 05/23/19 14:43 Primary Care Provider: TONYA RODRIGUEZ MD [Primary Care Provider] - Follow up as needed Mode of Arrival: Wheelchair Information source: Patient, Relative Notes: Patient presents emergency department with reports that he had some abnormal labs drawn. Reports he saw his provider Dr. Rodriguez and Dr. Mcclain. He was contacted today and told to come in because his potassium was high and he had a white blood count. Patient reports he had some diarrhea but denies nausea vomiting fever. Patient has cirrhosis of the liver with ascites. I have greeted and performed a rapid initial assessment of this patient. A comprehensive ED assessment and evaluation of the patient, analysis of test results and completion of the medical decision making process will be conducted by additional ED providers. Dictation of this chart was performed using voice recognition software; therefore, there may be some unintended grammatical errors. TRAVEL OUTSIDE OF THE [place] IN LAST 30 DAYS: No - Related Data Allergies/Adverse Reactions: No Known Allergies Allergy (Verified 05/23/19 14:25) Past Medical History - Past Medical History Cardiac Medical History: Reports: Hx Hypertension Denies: Hx Congestive Heart Failure, Hx Coronary Artery Disease, Hx Heart Attack Pulmonary Medical History: Reports: Hx COPD Denies: Hx Asthma, Hx Bronchitis, Hx Pneumonia, Hx Tuberculosis Neurological Medical History: Denies: Hx Cerebrovascular Accident, Hx Seizures Renal/ Medical History: Denies: Hx Benign Prostatic Hyperplasia, Hx End Stage Renal Disease, Hx Kidney Stones, Hx Peritoneal Dialysis GI Medical History: Reports: Hx Cirrhosis, Hx Gastroesophageal Reflux Disease, Hx Hepatitis - Hep. C, states received treatment for this. Denies: Hx Ulcer Musculoskeltal Medical History: Denies Hx Arthritis, Denies Hx Multiple Sclerosis Psychiatric Medical History: Reports: Hx Depression Denies: Hx Bipolar Disorder, Hx Schizophrenia Infectious Medical History: Reports: Hx Hepatitis - Hep. C, states received treatment for this Past Surgical History: Reports: Hx Orthopedic Surgery - spinal surgery - Immunizations Hx Diphtheria, Pertussis, Tetanus Vaccination: No Physical Exam - Vital signs Vitals: Temp Pulse Resp BP Pulse Ox 97.6 F 91 16 83/61 L 94 05/23/19 14:32 05/23/19 14:32 05/23/19 14:32 05/23/19 14:32 05/23/19 14:32 Course - Vital Signs Vital signs: Temp Pulse Resp BP Pulse Ox 97.6 F 91 16 83/61 L 94 05/23/19 14:32 05/23/19 14:32 05/23/19 14:32 05/23/19 14:32 05/23/19 14:32 Doctor's Discharge - Discharge Referrals: TONYA RODRIGUEZ MD [Primary Care Provider] - Follow up as needed
[2019-05-23 17:11] LABS: ALANINE AMINOTRANSFERASE 20 U/L (21-72); ALBUMIN 3.5 g/dL (3.5-5.0); ALKALINE PHOSPHATASE 63 U/L (38-126); ANION GAP 13 (5-19); ASPARTATE AMINO TRANSFERASE 25 U/L (17-59); BILIRUBIN,DIRECT 0.5 mg/dL (0.0-0.4); BILIRUBIN,TOTAL 0.9 mg/dL (0.2-1.3); BLOOD UREA NITROGEN 51 mg/dL (7-20); CALCIUM 9.5 mg/dL (8.4-10.2); CARBON DIOXIDE 26 mmol/L (22-30); CHLORIDE 87 mmol/L (98-107); GLUCOSE 113 mg/dL (75-110); LIPASE 64.1 U/L (23-300); POTASSIUM 5.5 mmol/L (3.6-5.0); SODIUM 125.5 mmol/L (137-145); TOTAL PROTEIN 7.2 g/dL (6.3-8.2)
[2019-05-23 17:12] LABS: ABSOLUTE BASOPHILS # (AUTO) 0.1 10^3/uL (0.0-0.2); ABSOLUTE EOSINOPHILS # (AUTO) 0.1 10^3/uL (0.0-0.6); ABSOLUTE LYMPHOCYTES (AUTO) 1.1 10^3/uL (0.5-4.7); ABSOLUTE MONOCYTES (AUTO) 1.9 10^3/uL (0.1-1.4); ABSOLUTE NEUT (AUTO) 15.8 10^3/uL (1.7-8.2); BASOPHILS % (AUTO) 0.3 % (0-2); EOSINOPHILS % (AUTO) 0.5 % (0-6); HEMATOCRIT 39.5 % (37.9-51.0); HEMOGLOBIN 13.3 g/dL (13.5-17.0); LYMPHOCYTES % (AUTO) 5.7 % (13-45); MEAN CORPUSCULAR HEMOGLOBIN 27.8 pg (27.0-33.4); MEAN CORPUSCULAR HGB CONC 33.7 g/dL (32.0-36.0); MEAN CORPUSCULAR VOLUME 83 fl (80-97); PLATELET COUNT 661 10^3/uL (150-450); RED BLOOD COUNT 4.79 10^6/uL (4.35-5.55); RED CELL DISTRIBUTION WIDTH 14.8 % (11.5-14.0); SEGMENTED NEUTROPHILS % (AUTO) 83.5 % (42-78); TOTAL CELLS COUNTED % (AUTO) 100 %; WHITE BLOOD COUNT 18.9 10^3/uL (4.0-10.5)
[2019-05-23] MEDS ORDERED: NORMAL SALINE 1000 ML 1,000 ML IV ONE (18:21)
[2019-05-23] MEDS ORDERED: INSULIN REG, HUMAN 100 UNIT/ML 3 ML VIAL (PYX) IV ONE (18:21)
[2019-05-23] MEDS ORDERED: DEXTROSE 50%-WATER 25 GM/50 ML DISP.SYRIN IV ONE (18:21)
[2019-05-23] MEDS ORDERED: CALCIUM GLUCONATE 1000 MG/10 ML INJ IV ONE (18:21)
[2019-05-23 18:29] LABS: INTERNATIONAL RATION (INR) 1.18; PARTIAL THROMBOPLASTIN TIME 38.8 SEC (23.5-35.8); PROTHROMBIN TIME 15.1 SEC (11.4-15.4)
--- NOTE | 2019-05-23 18:38 | ER Document Report ---
ED General - General Chief Complaint: Abnormal Lab Results Stated Complaint: ABNORMAL LABS Time Seen by Provider: 05/23/19 14:43 Primary Care Provider: TONYA RODRIGUEZ MD [Primary Care Provider] - Follow up as needed Mode of Arrival: Wheelchair TRAVEL OUTSIDE OF THE [place] IN LAST 30 DAYS: No - HPI Notes: Patient is a 69-year-old male that presents to the emergency department for chief complaint of abnormal lab values. Patient reports a history of cirrhosis and gets blood drawn by his primary care doctor monthly. He had his monthly blood draw last week and was called today and told to return to the emergency room for elevated WBC count and potassium. Patient states that he has been feeling well but does fluctuate with intermittent fatigue and malaise. He denies any dysuria or urinary frequency. Patient states that he has not been having much water to drink. His Lasix were recently stopped. Patient had paracentesis performed about 10 days ago and reports that he took 6 L off. He denies any fever, chills, chest pain, shortness of breath. He states he gets intermittent sharp abdominal pains that lasts for a second at a time and then resolved 2-3 times a week, this has occurred this week but is not new for him. He does report vomiting once last night and once this morning. Currently he is not feeling nauseated. Patient does report feeling thirsty frequently. Past Medical History: Cirrhosis Past Surgical History: Reviewed in chart Social History: Reviewed in chart Family History: Reviewed and noncontributory for presenting illness Allergies: Reviewed, see documented allergy list. REVIEW OF SYSTEMS: CONSTITUTIONAL : No fever No chills No diaphoresis No recent illness EENT: No vision changes No congestion No sore throat CARDIOVASCULAR: No chest pain No palpitations RESPIRATORY: No shortness of breath No cough No difficulty breathing GASTROINTESTINAL: abdominal pain nausea vomiting No diarrhea GENITOURINARY: No dysuria No hematuria No difficulty urinating MUSCULOSKELETAL: No back pain No leg pain No arm pain SKIN: No rashes No lesions LYMPHATIC: No swollen, enlarged glands. NEUROLOGICAL: No lightheadedness No headache No weakness No paresthesias PSYCHIATRIC: No anxiety No depression PHYSICAL EXAMINATION: Vital signs reviewed, nursing noted reviewed. GENERAL: Well-appearing, cachectic and in no acute distress. HEAD: Atraumatic, normocephalic. EYES: Eyes appear normal, extraocular movements intact, sclera anicteric, conjunctiva are normal. ENT: nares patent, oropharynx clear without exudates. Dry mucous membranes. NECK: Normal range of motion, supple without lymphadenopathy LUNGS: Breath sounds clear to auscultation bilaterally and equal. No wheezes rales or rhonchi. HEART: Regular rate and rhythm without murmurs ABDOMEN: Distended with fluid wave, soft, nontender. No rebound, guarding, or rigidity. No masses appreciated. EXTREMITIES: Nontender, good range of motion, no pitting or edema. NEUROLOGICAL: No focal neurological deficits. Moves all extremities spontaneously Motor and sensory grossly intact on exam. PSYCH: Normal mood, normal affect. SKIN: Warm, Dry, normal turgor, no rashes or lesions noted on exposed skin - Related Data Allergies/Adverse Reactions: No Known Allergies Allergy (Verified 05/23/19 14:25) Past Medical History - General Information source: Patient, Relative - Social History Smoking Status: Current Every Day Smoker Frequency of alcohol use: None Drug Abuse: None Family History: Reviewed & Not Pertinent Patient has suicidal ideation: No Patient has homicidal ideation: No - Past Medical History Cardiac Medical History: Reports: Hx Hypertension Denies: Hx Congestive Heart Failure, Hx Coronary Artery Disease, Hx Heart Attack Pulmonary Medical History: Reports: Hx COPD Denies: Hx Asthma, Hx Bronchitis, Hx Pneumonia, Hx Tuberculosis Neurological Medical History: Denies: Hx Cerebrovascular Accident, Hx Seizures Renal/ Medical History: Denies: Hx Benign Prostatic Hyperplasia, Hx End Stage Renal Disease, Hx Kidney Stones, Hx Peritoneal Dialysis GI Medical History: Reports: Hx Cirrhosis, Hx Gastroesophageal Reflux Disease, Hx Hepatitis - Hep. C, states received treatment for this. Denies: Hx Ulcer Musculoskeletal Medical History: Denies Hx Arthritis, Denies Hx Multiple Sclerosis Psychiatric Medical History: Reports: Hx Depression Denies: Hx Bipolar Disorder, Hx Schizophrenia Infectious Medical History: Reports: Hx Hepatitis - Hep. C, states received treatment for this Past Surgical History: Reports: Hx Orthopedic Surgery - spinal surgery - Immunizations Hx Diphtheria, Pertussis, Tetanus Vaccination: No Physical Exam - Vital signs Vitals: Temp Pulse Resp BP Pulse Ox 97.6 F 91 16 83/61 L 94 05/23/19 14:32 05/23/19 14:32 05/23/19 14:32 05/23/19 14:32 05/23/19 14:32 Course - Re-evaluation Re-evalutation: 05/23/19 18:35 Vitals reviewed. Nursing notes reviewed. Patient does have elevated WBC count at 18. He also has hyponatremia, hyperkalemia and acute kidney injury. Patient does appear dehydrated. His systolic blood pressure is currently in the 80s however he is mentating and not feeling lightheaded. Patient will be started on IV fluids. He was given insulin, D50 and calcium for his hyperkalemia. Will hold on Kayexalate currently since he is dehydrated and hypotensive and I do not want to cause further dehydration by giving him severe diarrhea with Kayexalate. Patient's EKG shows no significant changes of hyperkalemia. He is also hyp onatremic which should improve with fluids. Laboratory 05/23/19 05/23/19 05/23/19 16:12 16:12 16:12 WBC 18.9 H RBC 4.79 Hgb 13.3 L Hct 39.5 MCV 83 MCH 27.8 MCHC 33.7 RDW 14.8 H Plt Count 661 H Seg Neutrophils % 83.5 H Lymphocytes % 5.7 L Monocytes % 10.0 Eosinophils % 0.5 Basophils % 0.3 Absolute Neutrophils 15.8 H Absolute Lymphocytes 1.1 Absolute Monocytes 1.9 H Absolute Eosinophils 0.1 Absolute Basophils 0.1 PT Cancelled INR Cancelled APTT Cancelled Sodium 125.5 L Potassium 5.5 H Chloride 87 L Carbon Dioxide 26 Anion Gap 13 BUN 51 H Creatinine 2.03 H Est GFR ( Amer) 40 L Est GFR (Non-Af Amer) 33 L Glucose 113 H Calcium 9.5 Total Bilirubin 0.9 Direct Bilirubin 0.5 H Neonat Total Bilirubin Not Reportable Neonat Direct Bilirubin Not Reportable Neonat Indirect Bili Not Reportable AST 25 ALT 20 L Alkaline Phosphatase 63 Total Protein 7.2 Albumin 3.5 Lipase 64.1 Urine Color Urine Appearance Urine pH Ur Specific Felicity Urine Protein Urine Glucose (UA) Urine Ketones Urine Blood Urine Nitrite Urine Bilirubin Urine Urobilinogen Ur Leukocyte Esterase Urine WBC (Auto) Urine RBC (Auto) U Hyaline Cast (Auto) Squamous Epi Cells Auto Urine Mucus (Auto) Urine Ascorbic Acid 05/23/19 05/23/19 17:45 18:20 WBC RBC Hgb Hct MCV MCH MCHC RDW Plt Count Seg Neutrophils % Lymphocytes % Monocytes % Eosinophils % Basophils % Absolute Neutrophils Absolute Lymphocytes Absolute Monocytes Absolute Eosinophils Absolute Basophils PT 15.1 INR 1.18 APTT 38.8 H Sodium Potassium Chloride Carbon Dioxide Anion Gap BUN Creatinine Est GFR ( Amer) Est GFR (Non-Af Amer) Glucose Calcium Total Bilirubin Direct Bilirubin Neonat Total Bilirubin Neonat Direct Bilirubin Neonat Indirect Bili AST ALT Alkaline Phosphatase Total Protein Albumin Lipase Urine Color YELLOW Urine Appearance SLIGHTLY-CLOUDY Urine pH 5.0 Ur Specific Felicity 1.017 Urine Protein NEGATIVE Urine Glucose (UA) NEGATIVE Urine Ketones NEGATIVE Urine Blood NEGATIVE Urine Nitrite NEGATIVE Urine Bilirubin NEGATIVE Urine Urobilinogen 2.0 H Ur Leukocyte Esterase NEGATIVE Urine WBC (Auto) 3 Urine RBC (Auto) 2 U Hyaline Cast (Auto) 4 Squamous Epi Cells Auto <1 Urine Mucus (Auto) RARE Urine Ascorbic Acid NEGATIVE Chest X-Ray 05/23/19 18:42 IMPRESSION: No consolidation. Small right pleural effusion. Similar emphysema -chronic interstitial changes. Urinalysis is still pending. 05/23/19 19:59 Urinalysis negative for infection. Chest x-ray shows chronic changes with no acute pneumonia. Patient's abdominal exam is soft with no focal tenderness and clinically he does not have symptoms of SBP. Patient has had elevation of his WBC count which may be hemoconcentration. He states his WBC count frequently goes up and down which is why he gets monthly blood work. I do not have a source of infection currently which is why antibiotics have not been given. Patient will be admitted to the hospital for further management. His care was discussed with Dr. Andujar who accepts admission. Patient stable at time of admission. - Vital Signs Vital signs: Temp Pulse Resp BP Pulse Ox 97.8 F 101 H 16 80/58 L 98 05/23/19 17:35 05/23/19 17:35 05/23/19 17:35 05/23/19 17:35 05/23/19 17:35 - Laboratory Result Diagrams: 05/23/19 16:12 05/23/19 16:12 Laboratory results interpreted by me: 05/23/19 05/23/19 05/23/19 16:12 16:12 17:45 WBC 18.9 H Hgb 13.3 L RDW 14.8 H Plt Count 661 H Seg Neutrophils % 83.5 H Lymphocytes % 5.7 L Absolute Neutrophils 15.8 H Absolute Monocytes 1.9 H APTT 38.8 H Sodium 125.5 L Potassium 5.5 H Chloride 87 L BUN 51 H Creatinine 2.03 H Est GFR ( Amer) 40 L Est GFR (Non-Af Amer) 33 L Glucose 113 H Direct Bilirubin 0.5 H ALT 20 L Urine Urobilinogen 05/23/19 18:20 WBC Hgb RDW Plt Count Seg Neutrophils % Lymphocytes % Absolute Neutrophils Absolute Monocytes APTT Sodium Potassium Chloride BUN Creatinine Est GFR ( Amer) Est GFR (Non-Af Amer) Glucose Direct Bilirubin ALT Urine Urobilinogen 2.0 H - EKG Interpretation by Me Additional EKG results interpreted by me: 05/23/19 18:40 1710: sinus arrhythmia, rate 96, no ectopy, borderline right axis, no STEMI Discharge - Discharge Clinical Impression: Hyperkalemia, Hyponatremia, Dehydration, BAUDILIO (acute kidney injury) Leukocytosis Qualifiers: Leukocytosis type: unspecified Qualified Code(s): D72.829 - Elevated white blood cell count, unspecified Ascites Qualifiers: Ascites type: other type Qualified Code(s): R18.8 - Other ascites Condition: Stable Disposition: ADMITTED INPATIENT Admitting Provider: [facility] Unit Admitted: [facility] Referrals: TONYA RODRIGUEZ MD [Primary Care Provider] - Follow up as needed
[2019-05-23 18:56] LABS: APPEARANCE,URINE SLIGHTLY-CLOUDY; BILIRUBIN,URINE NEGATIVE (NEGATIVE); COLOR,URINE YELLOW; GLUCOSE, URINE NEGATIVE (NEGATIVE); KETONES,URINE NEGATIVE (NEGATIVE); LEUKOCYTE ESTERASE,URINE NEGATIVE (NEGATIVE); NITRITE,URINE NEGATIVE (NEGATIVE); PROTEIN,URINE NEGATIVE (NEGATIVE); URINE SPECIFIC GRAVITY 1.017
--- NOTE | 2019-05-23 19:42 | RADIOLOGY REPORT (SQ) ---
EXAM DESCRIPTION: CHEST SINGLE VIEW COMPLETED DATE/TIME: 05/23/2019 7:12 pm REASON FOR STUDY: leukocytosis COMPARISON: 09/15/2018 TECHNIQUE: Single frontal radiographic view of the chest acquired. NUMBER OF VIEWS: One view. LIMITATIONS: None. FINDINGS: LUNGS AND PLEURA: No pneumothorax. No consolidation. Small right pleural effusion. Simil ar emphysema -chronic interstitial changes. MEDIASTINUM AND HILAR STRUCTURES: Stable. HEART AND VASCULAR STRUCTURES: Stable. BONES: No acute findings. HARDWARE: None in the chest. OTHER: No other significant finding. IMPRESSION: No consolidation. Small right pleural effusion. Similar emphysema -chronic interstitia l changes. TECHNICAL DOCUMENTATION: JOB ID: [id number] 2010 [employer]- All Rights Reserved Reading location - IP/workstation name: [email or web address]
[2019-05-23] MEDS ORDERED: NORMAL SALINE 1000 ML 1,000 ML IV PRN (20:56)
[2019-05-23] MEDS: CEFTRIAXONE 1 GM/D5W RTU 1 GM/50 ML RTUPB IV SCH (21:29)
[2019-05-23 22:42] LABS: PHOSPHORUS 4.9 mg/dL (2.5-4.5)
[2019-05-23 23:05] LABS: URINE AMPHETAMINES SCREEN NEGATIVE; URINE BARBITURATES SCREEN NEGATIVE; URINE BENZODIAZEPINES SCREEN NEGATIVE; URINE COCAINE SCREEN NEGATIVE; URINE MARIJUANA (THC) SCREEN NEGATIVE; URINE METHADONE SCREEN NEGATIVE; URINE PHENCYCLIDINE SCREEN NEGATIVE
[2019-05-23 23:19] LABS: URINE SODIUM < 5 mmol/L (30-90)
[2019-05-23 23:22] LABS: OSMOLALITY,URINE 478 mOsm/kg (300-900)
[2019-05-23 23:49] LABS: FREE T4 (FREE THYROXINE) 1.56 ng/dL (0.78-2.19)
[2019-05-24 00:03] LABS: THYROID STIMULATING HORMONE 4.37 uIU/mL (0.47-4.68)
[2019-05-24] MEDS ORDERED: ALBUTEROL SULFATE HFA (90 MCG/PUFF) 200 PUFF/8.5 GM MDI IH PRN ×2 (00:10→00:30)
[2019-05-24 03:20] LABS: ABSOLUTE BASOPHILS # (AUTO) 0.1 10^3/uL (0.0-0.2); ABSOLUTE EOSINOPHILS # (AUTO) 0.1 10^3/uL (0.0-0.6); ABSOLUTE LYMPHOCYTES (AUTO) 1.1 10^3/uL (0.5-4.7); ABSOLUTE MONOCYTES (AUTO) 1.7 10^3/uL (0.1-1.4); ABSOLUTE NEUT (AUTO) 11.3 10^3/uL (1.7-8.2); BASOPHILS % (AUTO) 0.5 % (0-2); EOSINOPHILS % (AUTO) 0.9 % (0-6); HEMATOCRIT 36.8 % (37.9-51.0); HEMOGLOBIN 12.2 g/dL (13.5-17.0); LYMPHOCYTES % (AUTO) 7.5 % (13-45); MEAN CORPUSCULAR HEMOGLOBIN 27.5 pg (27.0-33.4); MEAN CORPUSCULAR HGB CONC 33.2 g/dL (32.0-36.0); MEAN CORPUSCULAR VOLUME 83 fl (80-97); MONOCYTES % (AUTO) 11.8 % (3-13); PLATELET COUNT 486 10^3/uL (150-450); RED BLOOD COUNT 4.45 10^6/uL (4.35-5.55); RED CELL DISTRIBUTION WIDTH 14.9 % (11.5-14.0); SEGMENTED NEUTROPHILS % (AUTO) 79.3 % (42-78); TOTAL CELLS COUNTED % (AUTO) 100 %; WHITE BLOOD COUNT 14.2 10^3/uL (4.0-10.5)
[2019-05-24 03:39] LABS: ALANINE AMINOTRANSFERASE 24 U/L (21-72); ALBUMIN 2.9 g/dL (3.5-5.0); ALKALINE PHOSPHATASE 54 U/L (38-126); ANION GAP 8 (5-19); ASPARTATE AMINO TRANSFERASE 25 U/L (17-59); BILIRUBIN,DIRECT 0.4 mg/dL (0.0-0.4); BILIRUBIN,TOTAL 0.7 mg/dL (0.2-1.3); BLOOD UREA NITROGEN 49 mg/dL (7-20); CALCIUM 8.8 mg/dL (8.4-10.2); CARBON DIOXIDE 25 mmol/L (22-30); CHLORIDE 93 mmol/L (98-107); CHOLESTEROL 82.13 mg/dL (0-200); GLUCOSE 106 mg/dL (75-110); POTASSIUM 4.8 mmol/L (3.6-5.0); SODIUM 125.8 mmol/L (137-145); TOTAL PROTEIN 6.4 g/dL (6.3-8.2); TRIGLYCERIDES 70 mg/dL (<150)
[2019-05-24 03:51] LABS: DIRECT LDL 51 mg/dL (<100)
[2019-05-24 08:26] LABS: ARTERIAL BLOOD BASE EXCESS -0.7 mmol/L; ARTERIAL BLOOD H2CO3 1.08 mmol/L (1.05-1.35); ARTERIAL BLOOD HCO3 23.3 mmol/L (20-24); ARTERIAL BLOOD O2 SATURATION 95.2 % (94-98); ARTERIAL BLOOD PH 7.43 (7.35-7.45); ARTERIAL BLOOD PO2 73.4 mmHg (80-100); ARTERIAL BLOOD TOTAL CO2 24.4 mmol/L (23-27)
[2019-05-24 08:33] LABS: ARTERIAL BLOOD FIO2 ROOM AIR
[2019-05-24] MEDS: PANTOPRAZOLE SODIUM 40 MG TABLET.DR PO SCH (09:51)
[2019-05-24] MEDS: CEFTRIAXONE 1 GM/D5W RTU 1 GM/50 ML RTUPB IV SCH (09:51)
[2019-05-24] MEDS: TRAMADOL HCL 50 MG TABLET PO PRN ×2 (09:51→17:59)
[2019-05-24] MEDS: FLUTICASONE/UMECLIDIN/VILANTER 100-62.5-25 MCG/DOSE IH SCH (09:52)
--- NOTE | 2019-05-24 12:14 | RADIOLOGY REPORT (SQ) ---
EXAM DESCRIPTION: U/S ABD PARACENTESIS COMPLETED DATE/TIME: 05/24/2019 12:06 pm REASON FOR STUDY: Ascites COMPARISON: 05/13/2019 LIMITATIONS: None. PROCEDURE: Procedure, risks, benefit, and alternative explained to patient who then gave written con sent. The right lower abdominal wall marked using ultrasound guidance. A time-out was called for co rrect marking verification. Abdomen prepped and draped using sterile technique. Local anesthesia ach ieved using 10 ml of 1% lidocaine injection. A 6fr [id number]-H-[id number] set was introduced into the perit marie cavity. Fluid was drained. The catheter was removed and entry site was covered with sterile b andage. No immediate complications noted. Images acquired during the procedure were stored on PACS. FINDINGS: ENTRY SITE: Right lower quadrant FLUID VOLUME: 4000 cc FLUID ANALYSIS: Jenae OTHER: Fluid sent to the lab for testing. IMPRESSION: SUCCESSFUL ULTRASOUND GUIDED PARACENTESIS. COMMENT: Patient medication list reviewed:Yes- Quality ID# [id number]:Eligible professional attests to docu menting in the medical record they obtained, updated, or reviewed the patient's current medications. TECHNICAL DOCUMENTATION: JOB ID: [id number] [employer]- All Rights Reserved Reading location - IP/workstation name: [email or web address]
[2019-05-24 13:22] LABS: FLUID APPEARANCE CLEAR; FLUID COLOR YELLOW; FLUID SOURCE ABDOMEN; FLUID TYPE PERITONEAL; FLUID VISCOSITY LIQUID
--- NOTE | 2019-05-24 18:51 | EKG REPORT ---
SEVERITY:- ABNORMAL ECG - SINUS RHYTHM, IRREGULAR RATE [id number] DUE TO PACS BORDERLINE RIGHT AXIS DEVIATION NONSPECIFIC T ABNORMALITIES, ANTEROLATERAL LEADS : Confirmed by: Enoch Alfaro MD 24-May-2019 18:51:05
[2019-05-24] MEDS ORDERED: ALBUMIN HUMAN 12.5 GM/50 ML RTUINJ IV SCH (21:15)
--- NOTE | 2019-05-24 21:24 | PDOC H&P ---
History of Present Illness Admission Date/PCP: 05/23/19 20:07 TONYA RODRIGUEZ MD History of Present Illness: ROSHAN JACOBSEN JR is a 69 year old maleHe has history of hepatitis liver cirrhosis, he was referred to the emergency room from Dr. Rodriguez's office for evaluation of abnormal lab data.He also had leukocytosis, hypokalemia, hyponatremia, and was particularly concerned about spontaneous bacterial peritonitis, is very thin with distended abdomen. He has been undergoing large-volume paracentesis on a regular basis. Because of my concern for spontaneous bacterial peritonitis, he was empirically started on intravenous Rocephin, a third-generation cephalosporin. He underwent abdominal paracentesis, 4000 cc of fluid was collected.The absolute neutrophil count was 525 which is diagnostic of spontaneous bacterial peritonitis, absolute neutrophil count of more than 250 is diagnostic of SBP. He also met the criteria for initiation of albumin based on the serum creatinine of more than 1 and also BUN of more than 30 he required 1.5 g/kg body weight of albumin on day 1 and also 1 g per K body weight of albumin on day 3 Past Medical History Cardiac Medical History: Reports: Hypertension Pulmonary Medical History: Reports: Chronic Obstructive Pulmonary Disease (COPD) GI Medical History: Reports: Cirrhosis, Gastroesophageal Reflux Disease, Hepatitis - Hep. C, states received treatment for this Musculoskeltal Medical History: Denies: Arthritis Psychiatric Medical History: Reports: Depression Past Surgical History Past Surgical History: Reports: Orthopedic Surgery - spinal surgery Social History Smoking Status: Current Every Day Smoker Cigarettes Packs Per Day: 1 Frequency of Alcohol Use: None Hx Recreational Drug Use: No Drugs: None Hx Prescription Drug Abuse: No - Advance Directive Resuscitation Status: Full Code Family History Family History: Reviewed & Not Pertinent Parental Family History Reviewed: Yes Children Family History Reviewed: Yes Sibling(s) Family History Reviewed.: Yes Medication/Allergy Home Medications: Albuterol Sulfate [Proair HFA Inhalation Aerosol 8.5 gm MDI] 2 puff IH Q4HP PRN 02/05/19 Oxycodone HCl 15 mg PO Q6HP PRN 02/05/19 Pantoprazole Sodium [Protonix [address] Tablet] 40 mg PO DAILY 02/05/19 Oxycodone HCl [Oxycontin Sr 40 mg Tablet] 40 mg PO Q8 04/15/19 Fluticasone/Umeclidin/Vilanter [Trelegy 100-62.5-25 Mcg Ellipta 14 Dose/Dpi] 1 each IH DAILY 04/28/19 Allergies/Adverse Reactions: No Known Allergies Allergy (Verified 05/23/19 14:25) Review of Systems Constitutional: PRESENT: chills Eyes: ABSENT: visual disturbances Ears: ABSENT: hearing changes Cardiovascular: ABSENT: as per HPI, chest pain, dyspnea on exertion, edema, ort hropnea, palpitations, other Respiratory: ABSENT: cough, hemoptysis Gastrointestinal: PRESENT: bloating Genitourinary: ABSENT: dysuria, hematuria Musculoskeletal: ABSENT: joint swelling Neurological: ABSENT: abnormal gait, abnormal speech, confusion, dizziness, focal weakness, syncope Psychiatric: ABSENT: anxiety, depression, homidical ideation, suicidal ideation Endocrine: ABSENT: cold intolerance, heat intolerance, menstrual abnormalities, polydipsia, polyuria Hematologic/Lymphatic: ABSENT: easy bleeding, easy bruising, lymphadenopathy Physical Exam Vital Signs: Temp Pulse Resp BP Pulse Ox 97.8 F 71 19 89/55 L 96 05/24/19 18:35 05/24/19 18:35 05/24/19 18:35 05/24/19 18:35 05/24/19 13:08 Intake & Output 05/23/19 05/24/19 05/25/19 06:59 06:59 06:59 Intake Total 1000 100 Output Total 100 Balance 900 100 Weight 54.2 kg 52.8 kg General appearance: PRESENT: thin Head exam: PRESENT: atraumatic, normocephalic Eye exam: PRESENT: PERRLA Ear exam: PRESENT: normal external ear exam Mouth exam: PRESENT: moist, tongue midline Neck exam: PRESENT: full ROM Respiratory exam: PRESENT: clear to auscultation sudha Cardiovascular exam: PRESENT: RRR, +S1, +S2 Vascular exam: PRESENT: normal capillary refill GI/Abdominal exam: PRESENT: distended, normal bowel sounds, soft Rectal exam: PRESENT: deferred Neurological exam: PRESENT: alert, CN II-XII grossly intact. ABSENT: motor sensory deficit Psychiatric exam: PRESENT: appropriate affect, normal mood Skin exam: PRESENT: dry, intact, warm Results Laboratory Results: 05/24/19 03:09 05/24/19 03:09 05/23/19 05/23/19 05/23/19 18:20 21:40 21:40 WBC RBC Hgb Hct MCV MCH MCHC RDW Plt Count Seg Neutrophils % Lymphocytes % Monocytes % Eosinophils % Basophils % Absolute Neutrophils Absolute Lymphocytes Absolute Monocytes Absolute Eosinophils Absolute Basophils Carbonic Acid HCO3/H2CO3 Ratio ABG pH ABG pCO2 ABG pO2 ABG HCO3 ABG O2 Saturation ABG Base Excess FiO2 Sodium Potassium Chloride Carbon Dioxide Anion Gap BUN Creatinine Est GFR ( Amer) Est GFR (Non-Af Amer) Glucose Serum Osmolality Calcium Phosphorus 4.9 H Magnesium 2.1 Total Bilirubin AST ALT Alkaline Phosphatase Ammonia 10.2 Total Protein Albumin Triglycerides Cholesterol LDL Cholesterol Direct VLDL Cholesterol HDL Cholesterol Amylase 36 Lipase 84.0 TSH Free T4 Urine Osmolality 478 Fluid Type Fluid Source Fluid Color Fluid Appearance Fluid Viscosity Fluid WBC Fluid RBC 05/23/19 05/23/19 05/24/19 21:40 21:40 03:09 WBC 14.2 H RBC 4.45 Hgb 12.2 L Hct 36.8 L MCV 83 MCH 27.5 MCHC 33.2 RDW 14.9 H Plt Count 486 H Seg Neutrophils % 79.3 H Lymphocytes % 7.5 L Monocytes % 11.8 Eosinophils % 0.9 Basophils % 0.5 Absolute Neutrophils 11.3 H Absolute Lymphocytes 1.1 Absolute Monocytes 1.7 H Absolute Eosinophils 0.1 Absolute Basophils 0.1 Carbonic Acid HCO3/H2CO3 Ratio ABG pH ABG pCO2 ABG pO2 ABG HCO3 ABG O2 Saturation ABG Base Excess FiO2 Sodium Potassium Chloride Carbon Dioxide Anion Gap BUN Creatinine Est GFR ( Amer) Est GFR (Non-Af Amer) Glucose Serum Osmolality 271 L Calcium Phosphorus Magnesium Total Bilirubin AST ALT Alkaline Phosphatase Ammonia Total Protein Albumin Triglycerides Cholesterol LDL Cholesterol Direct VLDL Cholesterol HDL Cholesterol Amylase Lipase TSH 4.37 Free T4 1.56 Urine Osmolality Fluid Type Fluid Source Fluid Color Fluid Appearance Fluid Viscosity Fluid WBC Fluid RBC 05/24/19 05/24/19 05/24/19 03:09 08:12 11:25 WBC RBC Hgb Hct MCV MCH MCHC RDW Plt Count Seg Neutrophils % Lymphocytes % Monocytes % Eosinophils % Basophils % Absolute Neutrophils Absolute Lymphocytes Absolute Monocytes Absolute Eosinophils Absolute Basophils Carbonic Acid 1.08 HCO3/H2CO3 Ratio 21:1 ABG pH 7.43 ABG pCO2 36.0 ABG pO2 73.4 L ABG HCO3 23.3 ABG O2 Saturation 95.2 ABG Base Excess -0.7 FiO2 ROOM AIR Sodium 125.8 L Potassium 4.8 Chloride 93 L Carbon Dioxide 25 Anion Gap 8 BUN 49 H Creatinine 2.01 H Est GFR ( Amer) 40 L Est GFR (Non-Af Amer) 33 L Glucose 106 Serum Osmolality Calcium 8.8 Phosphorus Magnesium Total Bilirubin 0.7 AST 25 ALT 24 Alkaline Phosphatase 54 Ammonia Total Protein 6.4 Albumin 2.9 L Triglycerides 70 Cholesterol 82.13 LDL Cholesterol Direct 51 VLDL Cholesterol 14.0 HDL Cholesterol 23 L Amylase Lipase TSH Free T4 Urine Osmolality Fluid Type PERITONEAL Fluid Source ABDOMEN Fluid Color YELLOW Fluid Appearance CLEAR Fluid Viscosity LIQUID Fluid WBC 525 Fluid RBC 1910 05/23/19 05/23/19 05/23/19 16:12 16:12 16:12 Creatine Kinase 26 L CK-MB (CK-2) 1.37 NT-Pro-B Natriuret Pep 2280 H 05/24/19 05/24/19 05/24/19 03:09 03:09 09:15 Creatine Kinase 23 L 24 L CK-MB (CK-2) 1.55 NT-Pro-B Natriuret Pep 05/24/19 09:15 Creatine Kinase CK-MB (CK-2) 1.43 NT-Pro-B Natriuret Pep Impressions: Chest X-Ray 05/23/19 18:42 IMPRESSION: No consolidation. Small right pleural effusion. Similar emphysema -chronic interstitial changes. Paracentesis Ultrasound 05/24/19 00:00 IMPRESSION: SUCCESSFUL ULTRASOUND GUIDED PARACENTESIS. Assessment & Plan - Diagnosis (1) Spontaneous bacterial peritonitis Is this a current diagnosis for this admission?: Yes Plan: Patient met criteria for spontaneous bacterial peritonitis based on the absolute neutrophil count in the peritoneal fluid, the absolute neutrophil count was 525, more than 250 requirements of peritonitis., He also met the criteria for administration of albumin intravenously at 1.5 g/kg body weight of albumin on day 1 and 1 g/kg body weight of albumin on day 3 (2) Hypotension Qualifiers: Hypotension type: other hypotension type Qualified Code(s): I95.89 - Other hypotension Is this a current diagnosis for this admission?: Yes (3) Hyponatremia Is this a current diagnosis for this admission?: Yes Plan: Hyponatremia is due to liver cirrhosis (4) Acute kidney injury Is this a current diagnosis for this admission?: Yes (5) Hepatic cirrhosis due to chronic hepatitis C infection Is this a current diagnosis for this admission?: Yes
--- NOTE | 2019-05-24 21:27 | ADVANCED CARE ---
Attendance: After discussing with patient about CODE STATUS is agreeable to DNR status Resuscitation Status: Full Code
--- NOTE | 2019-05-24 21:35 | PDOC PROGRESS REPORT ---
Subjective Progress Note for:: 05/24/19 Subjective:: Patient seen by the bedside, he was admitted yesterday for suspected spontaneous bacterial peritonitis, abdominal paracentesis done today demonstrated absolute neutrophil count is more than 250 diagnostic of SBP Reason For Visit: HYPONATREMIA,HYPERKALEMIA ? SPONTANEOUS BACTERIAL Physical Exam Vital Signs: Temp Pulse Resp BP Pulse Ox 97.8 F 71 19 89/55 L 96 05/24/19 18:35 05/24/19 18:35 05/24/19 18:35 05/24/19 18:35 05/24/19 13:08 Intake & Output 05/23/19 05/24/19 05/25/19 06:59 06:59 06:59 Intake Total 1000 100 Output Total 100 Balance 900 100 Weight 54.2 kg 52.8 kg General appearance: PRESENT: no acute distress Eye exam: PRESENT: PERRLA Respiratory exam: PRESENT: clear to auscultation sudha Cardiovascular exam: PRESENT: +S1, +S2 GI/Abdominal exam: PRESENT: soft Neurological exam: PRESENT: alert, CN II-XII grossly intact Results Laboratory Results: 05/24/19 03:09 05/24/19 03:09 05/23/19 05/23/19 05/23/19 18:20 21:40 21:40 WBC RBC Hgb Hct MCV MCH MCHC RDW Plt Count Seg Neutrophils % Lymphocytes % Monocytes % Eosinophils % Basophils % Absolute Neutrophils Absolute Lymphocytes Absolute Monocytes Absolute Eosinophils Absolute Basophils Carbonic Acid HCO3/H2CO3 Ratio ABG pH ABG pCO2 ABG pO2 ABG HCO3 ABG O2 Saturation ABG Base Excess FiO2 Sodium Potassium Chloride Carbon Dioxide Anion Gap BUN Creatinine Est GFR ( Amer) Est GFR (Non-Af Amer) Glucose Serum Osmolality Calcium Phosphorus 4.9 H Magnesium 2.1 Total Bilirubin AST ALT Alkaline Phosphatase Ammonia 10.2 Total Protein Albumin Triglycerides Cholesterol LDL Cholesterol Direct VLDL Cholesterol HDL Cholesterol Amylase 36 Lipase 84.0 TSH Free T4 Urine Osmolality 478 Fluid Type Fluid Source Fluid Color Fluid Appearance Fluid Viscosity Fluid WBC Fluid RBC 05/23/19 05/23/19 05/24/19 21:40 21:40 03:09 WBC 14.2 H RBC 4.45 Hgb 12.2 L Hct 36.8 L MCV 83 MCH 27.5 MCHC 33.2 RDW 14.9 H Plt Count 486 H Seg Neutrophils % 79.3 H Lymphocytes % 7.5 L Monocytes % 11.8 Eosinophils % 0.9 Basophils % 0.5 Absolute Neutrophils 11.3 H Absolute Lymphocytes 1.1 Absolute Monocytes 1.7 H Absolute Eosinophils 0.1 Absolute Basophils 0.1 Carbonic Acid HCO3/H2CO3 Ratio ABG pH ABG pCO2 ABG pO2 ABG HCO3 ABG O2 Saturation ABG Base Excess FiO2 Sodium Potassium Chloride Carbon Dioxide Anion Gap BUN Creatinine Est GFR ( Amer) Est GFR (Non-Af Amer) Glucose Serum Osmolality 271 L Calcium Phosphorus Magnesium Total Bilirubin AST ALT Alkaline Phosphatase Ammonia Total Protein Albumin Triglycerides Cholesterol LDL Cholesterol Direct VLDL Cholesterol HDL Cholesterol Amylase Lipase TSH 4.37 Free T4 1.56 Urine Osmolality Fluid Type Fluid Source Fluid Color Fluid Appearance Fluid Viscosity Fluid WBC Fluid RBC 05/24/19 05/24/19 05/24/19 03:09 08:12 11:25 WBC RBC Hgb Hct MCV MCH MCHC RDW Plt Count Seg Neutrophils % Lymphocytes % Monocytes % Eosinophils % Basophils % Absolute Neutrophils Absolute Lymphocytes Absolute Monocytes Absolute Eosinophils Absolute Basophils Carbonic Acid 1.08 HCO3/H2CO3 Ratio 21:1 ABG pH 7.43 ABG pCO2 36.0 ABG pO2 73.4 L ABG HCO3 23.3 ABG O2 Saturation 95.2 ABG Base Excess -0.7 FiO2 ROOM AIR Sodium 125.8 L Potassium 4.8 Chloride 93 L Carbon Dioxide 25 Anion Gap 8 BUN 49 H Creatinine 2.01 H Est GFR ( Amer) 40 L Est GFR (Non-Af Amer) 33 L Glucose 106 Serum Osmolality Calcium 8.8 Phosphorus Magnesium Total Bilirubin 0.7 AST 25 ALT 24 Alkaline Phosphatase 54 Ammonia Total Protein 6.4 Albumin 2.9 L Triglycerides 70 Cholesterol 82.13 LDL Cholesterol Direct 51 VLDL Cholesterol 14.0 HDL Cholesterol 23 L Amylase Lipase TSH Free T4 Urine Osmolality Fluid Type PERITONEAL Fluid Source ABDOMEN Fluid Color YELLOW Fluid Appearance CLEAR Fluid Viscosity LIQUID Fluid WBC 525 Fluid RBC 1910 05/23/19 05/23/19 05/23/19 16:12 16:12 16:12 Creatine Kinase 26 L CK-MB (CK-2) 1.37 NT-Pro-B Natriuret Pep 2280 H 05/24/19 05/24/19 05/24/19 03:09 03:09 09:15 Creatine Kinase 23 L 24 L CK-MB (CK-2) 1.55 NT-Pro-B Natriuret Pep 05/24/19 09:15 Creatine Kinase CK-MB (CK-2) 1.43 NT-Pro-B Natriuret Pep Impressions: Chest X-Ray 05/23/19 18:42 IMPRESSION: No consolidation. Small right pleural effusion. Similar emphysema -chronic interstitial changes. Paracentesis Ultrasound 05/24/19 00:00 IMPRESSION: SUCCESSFUL ULTRASOUND GUIDED PARACENTESIS. Assessment & Plan - Diagnosis (1) Spontaneous bacterial peritonitis Is this a current diagnosis for this admission?: Yes Plan: Patient met criteria for spontaneous bacterial peritonitis based on the absolute neutrophil count in the peritoneal fluid, the absolute neutrophil count was 525, more than 250 requirements of peritonitis., He also met the criteria for administration of albumin intravenously at 1.5 g/kg body weight of albumin on day 1 and 1 g/kg body weight of albumin on day 3 (2) Hypotension Qualifiers: Hypotension type: other hypotension type Qualified Code(s): I95.89 - Other hypotension Is this a current diagnosis for this admission?: Yes (3) Hyponatremia Is this a current diagnosis for this admission?: Yes Plan: Hyponatremia is due to liver cirrhosis (4) Acute kidney injury Is this a current diagnosis for this admission?: Yes (5) Hepatic cirrhosis due to chronic hepatitis C infection Is this a current diagnosis for this admission?: Yes
[2019-05-24] MEDS: ALBUMIN HUMAN 12.5 GM/50 ML RTUINJ IV SCH ×3 (22:31→23:20)
[2019-05-25] MEDS: ALBUMIN HUMAN 12.5 GM/50 ML RTUINJ IV SCH ×5 (00:48→16:33)
[2019-05-25 06:37] LABS: ABSOLUTE BASOPHILS # (AUTO) 0.1 10^3/uL (0.0-0.2); ABSOLUTE EOSINOPHILS # (AUTO) 0.1 10^3/uL (0.0-0.6); ABSOLUTE MONOCYTES (AUTO) 1.4 10^3/uL (0.1-1.4); ABSOLUTE NEUT (AUTO) 8.9 10^3/uL (1.7-8.2); BASOPHILS % (AUTO) 0.6 % (0-2); EOSINOPHILS % (AUTO) 0.6 % (0-6); HEMATOCRIT 33.7 % (37.9-51.0); HEMOGLOBIN 11.3 g/dL (13.5-17.0); LYMPHOCYTES % (AUTO) 8.6 % (13-45); MEAN CORPUSCULAR HEMOGLOBIN 27.7 pg (27.0-33.4); MEAN CORPUSCULAR HGB CONC 33.5 g/dL (32.0-36.0); MEAN CORPUSCULAR VOLUME 83 fl (80-97); MONOCYTES % (AUTO) 11.9 % (3-13); PLATELET COUNT 387 10^3/uL (150-450); RED BLOOD COUNT 4.07 10^6/uL (4.35-5.55); RED CELL DISTRIBUTION WIDTH 14.6 % (11.5-14.0); SEGMENTED NEUTROPHILS % (AUTO) 78.3 % (42-78); TOTAL CELLS COUNTED % (AUTO) 100 %; WHITE BLOOD COUNT 11.4 10^3/uL (4.0-10.5)
[2019-05-25 07:04] LABS: ALANINE AMINOTRANSFERASE 21 U/L (21-72); ALBUMIN 3.5 g/dL (3.5-5.0); ALKALINE PHOSPHATASE 43 U/L (38-126); ANION GAP 8 (5-19); ASPARTATE AMINO TRANSFERASE 20 U/L (17-59); BILIRUBIN,DIRECT 0.4 mg/dL (0.0-0.4); BILIRUBIN,TOTAL 0.7 mg/dL (0.2-1.3); BLOOD UREA NITROGEN 48 mg/dL (7-20); CALCIUM 9.1 mg/dL (8.4-10.2); CARBON DIOXIDE 22 mmol/L (22-30); CHLORIDE 95 mmol/L (98-107); GLUCOSE 118 mg/dL (75-110); POTASSIUM 4.6 mmol/L (3.6-5.0); SODIUM 125.4 mmol/L (137-145); TOTAL PROTEIN 6.4 g/dL (6.3-8.2)
[2019-05-25] MEDS: PANTOPRAZOLE SODIUM 40 MG TABLET.DR PO SCH (09:01)
[2019-05-25] MEDS: NICOTINE 14 MG/24 HR PATCH.TD24 TD SCH (09:01)
[2019-05-25] MEDS: FLUTICASONE/UMECLIDIN/VILANTER 100-62.5-25 MCG/DOSE IH SCH (09:02)
[2019-05-25] MEDS: CEFTRIAXONE SODIUM 1,000 MG in DEXTROSE 5%-WATER 50 ML IV SCH (09:06)
[2019-05-25] MEDS: TRAMADOL HCL 50 MG TABLET PO PRN (09:09)
--- NOTE | 2019-05-25 10:58 | PDOC PROGRESS REPORT ---
Subjective Progress Note for:: 05/25/19 Subjective:: Patient was admitted because of the weakness ascites and patient have a full liter of the fluid was removed Patient's fluid was positive for WBC and start the IV antibiotic for SBP Patient's fluid culture is still pending Patient sodium was also low Patient is denied any chest pain to than any shortness of the breath Patient's denied any other symptoms very weak Patient also received a albumin Reason For Visit: HYPONATREMIA,HYPERKALEMIA ? SPONTANEOUS BACTERIAL Physical Exam Vital Signs: Temp Pulse Resp BP Pulse Ox 98.2 F 80 19 86/53 L 100 05/25/19 08:06 05/25/19 08:06 05/25/19 08:06 05/25/19 08:06 05/25/19 08:06 Intake & Output 05/24/19 05/25/19 05/26/19 06:59 06:59 06:59 Intake Total 1000 315 Output Total 100 Balance 900 315 Weight 54.2 kg 52.8 kg General appearance: PRESENT: no acute distress, thin Head exam: PRESENT: atraumatic, normocephalic Eye exam: PRESENT: conjunctiva pink, EOMI, PERRLA. ABSENT: scleral icterus Ear exam: PRESENT: normal external ear exam Mouth exam: PRESENT: moist, tongue midline Neck exam: PRESENT: full ROM. ABSENT: carotid bruit, JVD, lymphadenopathy, thyromegaly Respiratory exam: PRESENT: clear to auscultation sudha Cardiovascular exam: PRESENT: irregular rhythm. ABSENT: diastolic murmur, rubs, systolic murmur Vascular exam: PRESENT: normal capillary refill GI/Abdominal exam: PRESENT: ascites, distended, normal bowel sounds. ABSENT: guarding, mass, organolmegaly, rebound, tenderness Rectal exam: PRESENT: deferred Neurological exam: PRESENT: alert, awake, oriented to person, oriented to place, oriented to time, oriented to situation, CN II-XII grossly intact. ABSENT: mo tor sensory deficit Psychiatric exam: PRESENT: appropriate affect, normal mood. ABSENT: homicidal ideation, suicidal ideation Skin exam: PRESENT: dry, intact, warm. ABSENT: cyanosis, rash Results Laboratory Results: 05/25/19 06:29 05/25/19 06:29 05/24/19 05/25/19 05/25/19 11:25 06:29 06:29 WBC 11.4 H RBC 4.07 L Hgb 11.3 L Hct 33.7 L MCV 83 MCH 27.7 MCHC 33.5 RDW 14.6 H Plt Count 387 Seg Neutrophils % 78.3 H Lymphocytes % 8.6 L Monocytes % 11.9 Eosinophils % 0.6 Basophils % 0.6 Absolute Neutrophils 8.9 H Absolute Lymphocytes 1.0 Absolute Monocytes 1.4 Absolute Eosinophils 0.1 Absolute Basophils 0.1 Sodium 125.4 L Potassium 4.6 Chloride 95 L Carbon Dioxide 22 Anion Gap 8 BUN 48 H Creatinine 1.93 H Est GFR ( Amer) 42 L Est GFR (Non-Af Amer) 35 L Glucose 118 H Calcium 9.1 Total Bilirubin 0.7 AST 20 ALT 21 Alkaline Phosphatase 43 Total Protein 6.4 Albumin 3.5 Fluid Type PERITONEAL Fluid Source ABDOMEN Fluid Color YELLOW Fluid Appearance CLEAR Fluid Viscosity LIQUID Fluid WBC 525 Fluid RBC 1910 05/23/19 05/23/19 05/23/19 16:12 16:12 16:12 Creatine Kinase 26 L CK-MB (CK-2) 1.37 NT-Pro-B Natriuret Pep 2280 H 05/24/19 05/24/19 05/24/19 03:09 03:09 09:15 Creatine Kinase 23 L 24 L CK-MB (CK-2) 1.55 NT-Pro-B Natriuret Pep 05/24/19 09:15 Creatine Kinase CK-MB (CK-2) 1.43 NT-Pro-B Natriuret Pep Impressions: Chest X-Ray 05/23/19 18:42 IMPRESSION: No consolidation. Small right pleural effusion. Similar emphysema -chronic interstitial changes. Paracentesis Ultrasound 05/24/19 00:00 IMPRESSION: SUCCESSFUL ULTRASOUND GUIDED PARACENTESIS. Assessment & Plan - Diagnosis (1) Acute kidney injury Is this a current diagnosis for this admission?: Yes Plan: Continues to IV fluid (2) Ascites Qualifiers: Ascites type: due to alcoholic cirrhosis Qualified Code(s): K70.31 - Alcoholic cirrhosis of liver with ascites Is this a current diagnosis for this admission?: Yes Plan: Discussed with the Dr. Mcclain currently hold the diuretics due to the renal failure and hypertension's (3) Hepatic cirrhosis due to chronic hepatitis C infection Is this a current diagnosis for this admission?: Yes Plan: It is not a candidate for liver transplant due to the chronic smoker and chronic dependent conditions and multiple comorbidity (4) Hyponatremia Is this a current diagnosis for this admission?: Yes Plan: cont IV fluids hold the diuretics (5) Hypotension Qualifiers: Hypotension type: other hypotension type Qualified Code(s): I95.89 - Other hypotension Is this a current diagnosis for this admission?: Yes Plan: Hold the diuretics (6) Spontaneous bacterial peritonitis Is this a current diagnosis for this admission?: Yes Plan: Continues to IV antibiotic As per discussed with Dr. Mcclain may need a low-dose Cipro every day (7) COPD (chronic obstructive pulmonary disease) Qualifiers: COPD type: unspecified COPD Qualified Code(s): J44.9 - Chronic obstructive pulmonary disease, unspecified Is this a current diagnosis for this admission?: Yes Plan: Continues to nebulizer as needed (8) Chronic use of opiate drug for therapeutic purpose Is this a current diagnosis for this admission?: Yes (9) GERD (gastroesophageal reflux disease) Qualifiers: Esophagitis presence: esophagitis presence not specified Qualified Code(s): K21.9 - Gastro-esophageal reflux disease without esophagitis Is this a current diagnosis for this admission?: Yes - Time Time Spent with patient: 15-24 minutes Medications reviewed and adjusted accordingly: Yes Anticipated discharge: Home, Home with Homehealth Within: Other - Plan Summary Plan Summary: Continues to current medications patient expressed the DNR/DNI
--- NOTE | 2019-05-25 13:34 | EKG REPORT ---
SEVERITY:- ABNORMAL ECG - SINUS RHYTHM SUPRAVENTRICULAR BIGEMINY BORDERLINE T ABNORMALITIES, INFERIOR LEADS : Confirmed by: Enoch Alfaro MD 25-May-2019 13:33:55
[2019-05-25] MEDS: LEVALBUTEROL HCL NEB 0.63 MG/3 ML AMPUL NEB SCH ×2 (13:52→20:57)
[2019-05-25] MEDS ORDERED: DOPAMINE HCL 800 MG/D5W 250 ML IV PRN (17:25)
[2019-05-26] MEDS ORDERED: NORMAL SALINE 1000 ML 1,000 ML IV PRN (04:37)
[2019-05-26 06:51] LABS: ABSOLUTE BASOPHILS # (AUTO) 0.1 10^3/uL (0.0-0.2); ABSOLUTE EOSINOPHILS # (AUTO) 0.1 10^3/uL (0.0-0.6); ABSOLUTE LYMPHOCYTES (AUTO) 0.9 10^3/uL (0.5-4.7); ABSOLUTE MONOCYTES (AUTO) 1.2 10^3/uL (0.1-1.4); ABSOLUTE NEUT (AUTO) 10.3 10^3/uL (1.7-8.2); BASOPHILS % (AUTO) 0.4 % (0-2); EOSINOPHILS % (AUTO) 0.5 % (0-6); HEMATOCRIT 34.3 % (37.9-51.0); HEMOGLOBIN 11.7 g/dL (13.5-17.0); LYMPHOCYTES % (AUTO) 7.5 % (13-45); MEAN CORPUSCULAR HEMOGLOBIN 27.8 pg (27.0-33.4); MEAN CORPUSCULAR HGB CONC 34.1 g/dL (32.0-36.0); MEAN CORPUSCULAR VOLUME 82 fl (80-97); MONOCYTES % (AUTO) 9.6 % (3-13); PLATELET COUNT 401 10^3/uL (150-450); RED BLOOD COUNT 4.21 10^6/uL (4.35-5.55); TOTAL CELLS COUNTED % (AUTO) 100 %; WHITE BLOOD COUNT 12.5 10^3/uL (4.0-10.5)
[2019-05-26 07:11] LABS: ALANINE AMINOTRANSFERASE 24 U/L (21-72); ALBUMIN 3.1 g/dL (3.5-5.0); ALKALINE PHOSPHATASE 42 U/L (38-126); ANION GAP 10 (5-19); ASPARTATE AMINO TRANSFERASE 22 U/L (17-59); BILIRUBIN,DIRECT 0.4 mg/dL (0.0-0.4); BILIRUBIN,TOTAL 0.7 mg/dL (0.2-1.3); BLOOD UREA NITROGEN 47 mg/dL (7-20); CALCIUM 8.8 mg/dL (8.4-10.2); CARBON DIOXIDE 23 mmol/L (22-30); CHLORIDE 94 mmol/L (98-107); GLUCOSE 96 mg/dL (75-110); SODIUM 126.8 mmol/L (137-145); TOTAL PROTEIN 6.1 g/dL (6.3-8.2)
[2019-05-26] MEDS: LEVALBUTEROL HCL NEB 0.63 MG/3 ML AMPUL NEB SCH ×3 (08:25→20:14)
--- NOTE | 2019-05-26 08:30 | PDOC PROGRESS REPORT ---
Subjective Progress Note for:: 05/26/19 Subjective:: Patient is currently doing same She has blood pressure was running 70 systolic increase more IV fluid and start on a dopamine drips Patient is alert awake's asking for more pain medications Patients have a chronic back problems Patient is very cachectic Patient is denied any chest pain to than any shortness of the breath Patient's wants more comfortable Reason For Visit: HYPONATREMIA,HYPERKALEMIA ? SPONTANEOUS BACTERIAL Physical Exam Vital Signs: Temp Pulse Resp BP Pulse Ox 98 F 82 12 124/80 98 05/26/19 03:09 05/26/19 03:09 05/26/19 03:09 05/26/19 06:29 05/26/19 03:09 Intake & Output 05/25/19 05/26/19 05/27/19 06:59 06:59 06:59 Intake Total 315 850 Output Total 450 Balance 315 400 Weight 52.8 kg 51.6 kg General appearance: PRESENT: no acute distress, thin Eye exam: PRESENT: PERRLA Mouth exam: PRESENT: neck supple Respiratory exam: PRESENT: decreased breath sounds Cardiovascular exam: PRESENT: +S1, +S2 Extremities exam: ABSENT: pedal edema Neurological exam: PRESENT: alert, awake, oriented to person, oriented to place, oriented to time, oriented to situation Skin exam: PRESENT: dry Results Laboratory Results: 05/26/19 06:02 05/26/19 06:02 05/24/19 05/26/19 05/26/19 11:25 06:02 06:02 WBC 12.5 H RBC 4.21 L Hgb 11.7 L Hct 34.3 L MCV 82 MCH 27.8 MCHC 34.1 RDW 15.0 H Plt Count 401 Seg Neutrophils % 82.0 H Lymphocytes % 7.5 L Monocytes % 9.6 Eosinophils % 0.5 Basophils % 0.4 Absolute Neutrophils 10.3 H Absolute Lymphocytes 0.9 Absolute Monocytes 1.2 Absolute Eosinophils 0.1 Absolute Basophils 0.1 Sodium 126.8 L Potassium 5.0 Chloride 94 L Carbon Dioxide 23 Anion Gap 10 BUN 47 H Creatinine 1.76 H Est GFR ( Amer) 47 L Est GFR (Non-Af Amer) 39 L Glucose 96 Calcium 8.8 Total Bilirubin 0.7 AST 22 ALT 24 Alkaline Phosphatase 42 Total Protein 6.1 L Albumin 3.1 L Fluid Albumin 1.3 05/23/19 18:20 Clean Catch Midstream Urine Culture - Final 3,000 col/ml 05/23/19 05/23/19 05/23/19 16:12 16:12 16:12 Creatine Kinase 26 L CK-MB (CK-2) 1.37 NT-Pro-B Natriuret Pep 2280 H 05/24/19 05/24/19 05/24/19 03:09 03:09 09:15 Creatine Kinase 23 L 24 L CK-MB (CK-2) 1.55 NT-Pro-B Natriuret Pep 05/24/19 09:15 Creatine Kinase CK-MB (CK-2) 1.43 NT-Pro-B Natriuret Pep Impressions: Chest X-Ray 05/23/19 18:42 IMPRESSION: No consolidation. Small right pleural effusion. Similar emphysema -chronic interstitial changes. Paracentesis Ultrasound 05/24/19 00:00 IMPRESSION: SUCCESSFUL ULTRASOUND GUIDED PARACENTESIS. Assessment & Plan - Diagnosis (1) Acute kidney injury Is this a current diagnosis for this admission?: Yes Plan: Continues to IV fluid Consult the nephrology (2) Ascites Qualifiers: Ascites type: due to alcoholic cirrhosis Qualified Code(s): K70.31 - Alcoholic cirrhosis of liver with ascites Is this a current diagnosis for this admission?: Yes Plan: Discussed with the Dr. Mcclain currently hold the diuretics due to the renal failure and hypertension's (3) Hepatic cirrhosis due to chronic hepatitis C infection Is this a current diagnosis for this admission?: Yes Plan: It is not a candidate for liver transplant due to the chronic smoker and chronic dependent conditions and multiple comorbidity (4) Hyponatremia Is this a current diagnosis for this admission?: Yes Plan: cont IV fluids hold the diuretics (5) Hypotension Qualifiers: Hypotension type: other hypotension type Qualified Code(s): I95.89 - Other hypotension Is this a current diagnosis for this admission?: Yes Plan: Continues to IV fluid continues to IV antibiotics so far culture is negative also started on Midrin 5 mg every [address] Mcclain about that (6) Spontaneous bacterial peritonitis Is this a current diagnosis for this admission?: Yes Plan: Continues to IV antibiotic As per discussed with Dr. Mcclain may need a low-dose Cipro every day (7) COPD (chronic obstructive pulmonary disease) Qualifiers: COPD type: unspecified COPD Qualified Code(s): J44.9 - Chronic obstructive pulmonary disease, unspecified Is this a current diagnosis for this admission?: Yes Plan: Continues to nebulizer as needed (8) Chronic use of opiate drug for therapeutic purpose Is this a current diagnosis for this admission?: Yes Plan: Discussed with the patient about ongoing chronic problems with the low blood pressure with the pain medication issues start very low-dose the patient's blood pressure is stable (9) GERD (gastroesophageal reflux disease) Qualifiers: Esophagitis presence: esophagitis presence not specified Qualified Code(s): K21.9 - Gastro-esophageal reflux disease without esophagitis Is this a current diagnosis for this admission?: Yes - Time Time Spent with patient: 15-24 minutes Medications reviewed and adjusted accordingly: Yes Anticipated discharge: Other Within: Other - Plan Summary Plan Summary: Discussed with the patient he wants to be a more comfortable rather than suffering from any pain in patients know about the end-stage liver disease and renal failure we will discuss with the patient's family about possible hospice care Discussed with the events solutions consultant Dr. Mcclain and suggest that if the patient's wants to go for that there will be more appropriate because patient unable to take any diuretics because of worsening low blood pressures
[2019-05-26] MEDS ORDERED: DOPAMINE HCL 800 MG/D5W 250 ML IV PRN (09:30)
[2019-05-26] MEDS: CEFTRIAXONE SODIUM 1,000 MG in DEXTROSE 5%-WATER 50 ML IV SCH (09:52)
[2019-05-26] MEDS: MIDODRINE HCL 5 MG TABLET PO SCH ×3 (09:54→18:28)
[2019-05-26] MEDS: PANTOPRAZOLE SODIUM 40 MG TABLET.DR PO SCH (09:54)
[2019-05-26] MEDS: NICOTINE 14 MG/24 HR PATCH.TD24 TD SCH (09:55)
[2019-05-26] MEDS: FLUTICASONE/UMECLIDIN/VILANTER 100-62.5-25 MCG/DOSE IH SCH (12:29)
[2019-05-26] MEDS ORDERED: ONDANSETRON HCL INJ/PF 4 MG/2 ML SDV ONE (13:01)
--- NOTE | 2019-05-26 13:13 | Progress Note ---
Provider Note Provider Note: Very extensive discussion with the patient's To daughter Ericka and Azael other family memberAnd also discussed with the patientAnd patient and the family all wants to do the comfort care As per discussed with the decorating consultant Dr. Mcclain and suggest the patient unable to use any diuretics because of the low blood pressures and at this point patient with end-stage liver disease and a kidney failure with chronic COPD chronic smoker appropriate for the hospice and comfort care Patient's family do not want to go outside the [facility] and do not want to go the home hospice but want to continues to comfort care at the nursing facility Patient and the family understand about the Comfort care
[2019-05-26] MEDS ORDERED: OXYCODONE HCL IR 5 MG TABLET PO PRN ×2 (13:29→14:00)
[2019-05-26] MEDS ORDERED: ONDANSETRON 4 MG TAB.RAPDIS PO PRN (14:00)
[2019-05-26] MEDS ORDERED: TRAMADOL HCL 50 MG TABLET PO PRN (14:10)
[2019-05-26] MEDS: OXYCODONE HCL IR 5 MG TABLET PO PRN (18:24)
[2019-05-26] MEDS: MORPHINE SULFATE 10 MG/ML INJ IV PRN (19:58)
--- NOTE | 2019-05-26 20:02 | PDOC CONSULTATION ---
Consultation Consult Date: 05/26/19 Provider Consulted: GREGG BAINS History of Present Illness Admission Date/PCP: 05/23/19 20:07 TONYA RODRIGUEZ MD History of Present Illness: ROSHAN JACOBSEN JR is a 69 year old male Patient who was admitted on 05/24/2019 with ascites, hyponatremia, hypotension and bacterial peritonitis. He has end-stage liver disease with ascites that has been controlled over the last few months with paracentesis. He has not been able to tolerate diuretics due to hypotension. He has also had evidence of subacute peritonitis over the last couple of paracentesis and has been on antibiotics. He had a 4 L paracentesis 2 days ago that showed a white count of 500. He remains on Rocephin. He has received a total of 100 g of albumin since admission. His blood pressure systolic over was at about 90. He did receive dopamine for a while. He is significantly hyponatremic with a creatinine of 1.9 and albumin of 3.5 with normal LFTs. Overall he feels he is getting better. He does have some abdominal pain but it is not as distended. He was sitting across the edge of the bed when I saw him. He was started on Midodrine today Past Medical History Cardiac Medical History: Reports: Hypertension Denies: Congestive Heart Failure, Coronary Artery Disease, Myocardial Infarction Pulmonary Medical History: Reports: Chronic Obstructive Pulmonary Disease (COPD) Denies: Asthma, Bronchitis, Pneumonia, Tuberculosis Neurological Medical History: Denies: Seizures Renal/ Medical History: Denies: End Stage Renal Disease GI Medical History: Reports: Cirrhosis, Gastroesophageal Reflux Disease, Hepatitis - Hep. C, states received treatment for this Musculoskeltal Medical History: Denies: Arthritis Psychiatric Medical History: Reports: Depression Denies: Bipolar Disorder Hematology: Denies: Anemia, Bleeding Tendencies Past Surgical History Past Surgical History: Reports: Orthopedic Surgery - spinal surgery Social History Smoking Status: Current Every Day Smoker Cigarettes Packs Per Day: 1 Frequency of Alcohol Use: None Hx Recreational Drug Use: No Drugs: None Hx Prescription Drug Abuse: No - Advance Directive Resuscitation Status: Full Code Family History Family History: Reviewed & Not Pertinent Parental Family History Reviewed: No Children Family History Reviewed: NA Sibling(s) Family History Reviewed.: NA Medication/Allergy Home Medications: Albuterol Sulfate [Proair HFA Inhalation Aerosol 8.5 gm MDI] 2 puff IH Q4HP PRN 02/05/19 Oxycodone HCl 15 mg PO Q6HP PRN 02/05/19 Pantoprazole Sodium [Protonix [address] Tablet] 40 mg PO DAILY 02/05/19 Oxycodone HCl [Oxycontin Sr 40 mg Tablet] 40 mg PO Q8 04/15/19 Fluticasone/Umeclidin/Vilanter [Trelegy 100-62.5-25 Mcg Ellipta 14 Dose/Dpi] 1 each IH DAILY 04/28/19 Allergies/Adverse Reactions: No Known Allergies Allergy (Verified 05/23/19 14:25) Review of Systems All systems: reviewed and no additional remarkable complaints except as stated Physical Exam Vital Signs: Temp Pulse Resp BP Pulse Ox 98 F 104 H 17 124/80 98 05/26/19 03:09 05/26/19 14:00 05/26/19 13:55 05/26/19 06:29 05/26/19 13:55 Intake & Output 05/25/19 05/26/19 05/27/19 06:59 06:59 06:59 Intake Total 315 850 Output Total 450 Balance 315 400 Weight 52.8 kg 51.6 kg Exam: General: Patient is alert, thin and cachectic some pallor HEENT: There is no pallor or jaundice. PERRLA. Oropharynx normal Respiratory: No chest deformity. No respiratory distress. Chest wall palpitation was unremarkable. Breath sounds were normal Cardiovascular: Heart sounds 1 and 2 normal with no murmurs. Abdominal: There is mild distention with a dressing on the right side from the recent paracentesis. No significant tenderness. He does have ascites Extremities: Edema mostly involving both feet Neurological: Alert and oriented x4. Not fully examined Skin: No significant rash Psychological: Normal affect Results Laboratory Results: 05/26/19 06:02 05/26/19 06:02 05/26/19 05/26/19 05/26/19 06:02 06:02 10:44 WBC 12.5 H RBC 4.21 L Hgb 11.7 L Hct 34.3 L MCV 82 MCH 27.8 MCHC 34.1 RDW 15.0 H Plt Count 401 Seg Neutrophils % 82.0 H Lymphocytes % 7.5 L Monocytes % 9.6 Eosinophils % 0.5 Basophils % 0.4 Absolute Neutrophils 10.3 H Absolute Lymphocytes 0.9 Absolute Monocytes 1.2 Absolute Eosinophils 0.1 Absolute Basophils 0.1 Sodium 126.8 L Potassium 5.0 Chloride 94 L Carbon Dioxide 23 Anion Gap 10 BUN 47 H Creatinine 1.76 H Est GFR ( Amer) 47 L Est GFR (Non-Af Amer) 39 L Glucose 96 Lactic Acid 1.3 Calcium 8.8 Total Bilirubin 0.7 AST 22 ALT 24 Alkaline Phosphatase 42 Total Protein 6.1 L Albumin 3.1 L 05/24/19 11:25 Abdomen - Not Specified Fungal Smear - Final 05/24/19 11:25 Abdomen - Not Specified Fungal Smear - Final 05/23/19 05/23/19 05/23/19 16:12 16:12 16:12 Creatine Kinase 26 L CK-MB (CK-2) 1.37 NT-Pro-B Natriuret Pep 2280 H 05/24/19 05/24/19 05/24/19 03:09 03:09 09:15 Creatine Kinase 23 L 24 L CK-MB (CK-2) 1.55 NT-Pro-B Natriuret Pep 05/24/19 09:15 Creatine Kinase CK-MB (CK-2) 1.43 NT-Pro-B Natriuret Pep Impressions: Chest X-Ray 05/23/19 18:42 IMPRESSION: No consolidation. Small right pleural effusion. Similar emphysema -chronic interstitial changes. Paracentesis Ultrasound 05/24/19 00:00 IMPRESSION: SUCCESSFUL ULTRASOUND GUIDED PARACENTESIS. Assessment & Plan - Diagnosis (1) Spontaneous bacterial peritonitis Is this a current diagnosis for this admission?: Yes Plan: He does have evidence for SBP and she will continue with antibiotics. He should also continue on Cipro 250 mg daily for prophylaxis (2) Ascites Qualifiers: Ascites type: due to alcoholic cirrhosis Qualified Code(s): K70.31 - Alcoholic cirrhosis of liver with ascites Is this a current diagnosis for this admission?: Yes Plan: We will continue to manage his ascites with recurrent large-volume paracentesis. Hopefully this will be done as infrequent as possible due to his peritonitis. Continue Midodrin (3) Hepatic cirrhosis due to chronic hepatitis C infection Is this a current diagnosis for this admission?: Yes (4) Hyponatremia Is this a current diagnosis for this admission?: Yes Plan: He is on IV normal saline at the moment
[2019-05-26] MEDS: FAMOTIDINE 20 MG TABLET PO SCH (22:28)
[2019-05-26 22:54] VITALS: BP 80/52
[2019-05-27] MEDS: MORPHINE SULFATE 10 MG/ML INJ IV PRN ×3 (03:29→14:24)
[2019-05-27] MEDS: OXYCODONE HCL IR 5 MG TABLET PO PRN ×3 (05:07→15:10)
[2019-05-27] MEDS: LEVALBUTEROL HCL NEB 0.63 MG/3 ML AMPUL NEB SCH ×2 (08:18→13:57)
[2019-05-27] MEDS: MIDODRINE HCL 5 MG TABLET PO SCH ×2 (08:20→14:24)
[2019-05-27] MEDS: FAMOTIDINE 20 MG TABLET PO SCH (10:11)
[2019-05-27] MEDS: FLUTICASONE/UMECLIDIN/VILANTER 100-62.5-25 MCG/DOSE IH SCH (10:13)
[2019-05-27] MEDS: CEFTRIAXONE SODIUM 1,000 MG in DEXTROSE 5%-WATER 50 ML IV SCH (10:15)
[2019-05-27] MEDS: NICOTINE 14 MG/24 HR PATCH.TD24 TD SCH (10:16)
--- NOTE | 2019-05-27 11:29 | PDOC TRANSFER SUMMARY ---
General - Admit/Disc Date/PCP Admission Date/Primary Care Provider: 05/23/19 20:07 TONYA RODRIGUEZ MD Discharge Date: 05/27/19 - Discharge Diagnosis (1) Acute kidney injury Is this a current diagnosis for this admission?: Yes Summary: Currently all stable (2) Ascites Is this a current diagnosis for this admission?: Yes Summary: Recurrent ascites due to the cirrhosis of the liver from the hepatitis currently PRN comfort paracentesis (3) Hepatic cirrhosis due to chronic hepatitis C infection Is this a current diagnosis for this admission?: Yes Summary: Currently follow with Dr. Mcclain (4) Hyponatremia Is this a current diagnosis for this admission?: Yes Summary: Currently all stable (5) Hypotension Is this a current diagnosis for this admission?: Yes Summary: Due to the multiple comorbidity (6) Spontaneous bacterial peritonitis Is this a current diagnosis for this admission?: Yes Summary: Continues to Cipro for 2 weeks (7) COPD (chronic obstructive pulmonary disease) Is this a current diagnosis for this admission?: Yes Summary: Continues to PRN nebulizer treatments (8) Chronic use of opiate drug for therapeutic purpose Is this a current diagnosis for this admission?: Yes Summary: Continues to use the PRN pain medications (9) GERD (gastroesophageal reflux disease) Is this a current diagnosis for this admission?: Yes - Additional Information Resuscitation Status: Comfort Measures Only Discharge Diet: As Tolerated, Regular Discharge Activity: Activity As Tolerated Prescriptions: Ciprofloxacin HCl [Cipro 500 mg Tablet] 500 mg PO BID #28 tablet Levalbuterol HCl [Xopenex Neb 0.63 mg/3 ml Ampul] 0.63 mg NEB [id number] #120 vial. neb Midodrine HCl [Proamatine 5 mg Tablet] 5 mg PO 0800,1200,1600 #90 tablet Nicotine [Nicoderm 14 mg/24 Hr Transdermal Patch] 1 each TD DAILY #30 patch.td24 Ondansetron HCl [Zofran 4 mg Tablet] 1 - 2 tab PO Q4H PRN #10 tablet PRN Reason: Oxycodone HCl [Oxy-Ir 5 mg Tablet] 15 mg PO Q4HP PRN #30 tablet PRN Reason: Home Medications: Oxycodone HCl 15 mg PO Q6HP PRN 02/05/19 Pantoprazole Sodium [Protonix [address] Tablet] 40 mg PO DAILY 02/05/19 Fluticasone/Umeclidin/Vilanter [Trelegy 100-62.5-25 Mcg Ellipta 14 Dose/Dpi] 1 each IH DAILY 04/28/19 Ciprofloxacin HCl [Cipro 500 mg Tablet] 500 mg PO BID #28 tablet 05/27/19 Levalbuterol HCl [Xopenex Neb 0.63 mg/3 ml Ampul] 0.63 mg NEB [id number] #120 vial.neb 05/27/19 Midodrine HCl [Proamatine 5 mg Tablet] 5 mg PO 0800,1200,1600 #90 tablet 05/27/19 Nicotine [Nicoderm 14 mg/24 Hr Transdermal Patch] 1 each TD DAILY #30 patch.td24 05/27/19 Ondansetron HCl [Zofran 4 mg Tablet] 1 - 2 tab PO Q4H PRN #10 tablet 05/27/19 Oxycodone HCl [Oxy-Ir 5 mg Tablet] 15 mg PO Q4HP PRN #30 tablet 05/27/19 Oxycodone HCl [Oxycontin Sr 40 mg Tablet] 40 mg PO Q8 #20 05/27/19 History of Present Illness Admission Date/PCP: 05/23/19 20:07 TONYA RODRIGUEZ MD Patient complains of: Abdominal pain History of Present Illness: ROSHAN Cabral DELMAR KANG is a 69 year old male This is a 69-year-old male admitting in the hospital for the abdominal pain recurrent ascites and patient was diagnosed with the SBP in patients remove the full liter of the fluids Hospital Course Hospital Course: This is a 69-year-old male with the history of the recurrent ascites kidney failure COPD chronic smoker chronic pain syndromes and multiple other comorbidity debating conditions for several months several paracentesis was doneCame to the emergency department with not feeling well and abdominal pain and patients underwent for a paracentesis to remove the [place] catheter of the fluids and diagnosed with the SBP with the WBC and a fluid We will start with the IV antibiotics patient seen by Dr. Mcclain the preparer samples and repairs Patient's at this point blood pressure was running low patient was initially started on IV fluid and dopamine Patients are asking for more pain medications he does not want to suffer from any pain and patient was started the pain medication was taking at home and given morphine as needed Very extensive discussions with the patient's and the patient's 2 daughters and other family memberIn patients wants to make himself and the primary more comfortable rather than going for any aggressive management medical management At this points were extensive discussions with the patient and the family member at this do not want to go for inpatient hospice unable to go home's because family unable to take care of him with this conditions Patient's at this point sent to the rehab facilities for more just regular management and for comfort measure Still continues the patient antibiotic for 2 weeks and continues current medications And use PRN pain medication Again discussed with the patient about the overall prognosis is poor Discussed with the family Patient's at this point DNR/DNI Family member and the patient's agree Physical Exam Vital Signs: Temp Pulse Resp BP Pulse Ox 98.3 F 80 15 80/52 L 97 05/26/19 20:24 05/27/19 08:18 05/27/19 08:18 05/26/19 20:24 05/27/19 08:18 Intake & Output 05/26/19 05/27/19 05/28/19 06:59 06:59 06:59 Intake Total 850 310 Output Total 450 250 Balance 400 60 Weight 51.6 kg 55.7 kg General appearance: PRESENT: no acute distress, thin Eye exam: PRESENT: PERRLA Respiratory exam: PRESENT: decreased breath sounds GI/Abdominal exam: PRESENT: ascites, distended, normal bowel sounds Neurological exam: PRESENT: alert, awake, oriented to person, oriented to place, oriented to time, oriented to situation Results Laboratory Results: 05/26/19 06:02 05/26/19 06:02 05/26/19 10:44 Lactic Acid 1.3 05/24/19 11:25 Abdomen - Not Specified Fungal Smear - Final 05/24/19 11:25 Abdomen - Not Specified Fungal Smear - Final 05/23/19 05/23/19 05/23/19 16:12 16:12 16:12 Creatine Kinase 26 L CK-MB (CK-2) 1.37 NT-Pro-B Natriuret Pep 2280 H 05/24/19 05/24/19 05/24/19 03:09 03:09 09:15 Creatine Kinase 23 L 24 L CK-MB (CK-2) 1.55 NT-Pro-B Natriuret Pep 05/24/19 09:15 Creatine Kinase CK-MB (CK-2) 1.43 NT-Pro-B Natriuret Pep Impressions: Chest X-Ray 05/23/19 18:42 IMPRESSION: No consolidation. Small right pleural effusion. Similar emphysema -chronic interstitial changes. Paracentesis Ultrasound 05/24/19 00:00 IMPRESSION: SUCCESSFUL ULTRASOUND GUIDED PARACENTESIS. Transfer Plan - Time Spent with Patient Time spent with patient: Greater than 30 Minutes Qualifiers - * PATIENT BEING DISCHARGED WITH ANY OF THE FOLLOWING DIAGNOSIS: No VTE patient discharged on overlapping Therapy?: Yes Acute Heart Failure - Is this a Heart Failure Patient?: No Plan Time Spent: Greater than 30 Minutes - Discharge to the nursing facilities as above medications
== END 2019-05-27 17:00 | DRG 372 ==
LOC: ER 14:20 → EH 20:07 → 3S 05-24 18:37
PROVIDERS: ADMIT Family Medicine; ATTEND Family Medicine
PROC: 0W9G3ZX Drainage of Peritoneal Cavity, Percutaneous Approach, Diagnostic (ICD-10-PCS; principal; 2019-05-24)
DX: K65.2 Spontaneous bacterial peritonitis (principal); E87.1 Hypo-osmolality and hyponatremia; N17.9 Acute kidney failure, unspecified; K71.51 Toxic liver disease with chronic active hepatitis with ascites; Z66 Do not resuscitate; I95.89 Other hypotension; J44.9 Chronic obstructive pulmonary disease, unspecified; F11.90 Opioid use, unspecified, uncomplicated; K21.9 Gastro-esophageal reflux disease without esophagitis; G89.4 Chronic pain syndrome; I10 Essential (primary) hypertension; F32.9 Major depressive disorder, single episode, unspecified; K70.31 Alcoholic cirrhosis of liver with ascites; F10.20 Alcohol dependence, uncomplicated; F17.210 Nicotine dependence, cigarettes, uncomplicated; E87.5 Hyperkalemia; E86.0 Dehydration; Z79.899 Other long term (current) drug therapy
CPT/HCPCS: 36415; 49083; 71045; 80048; 80053; 80061; 80076; 80307; 81001; 82042; 82140; 82150; 82550; 82553; 82803; 83036; 83605; 83690; 83735; 83880; 83930; 83935; 84100; 84300; 84439; 84443; 85025; 85610; 85730; 87040; 87070; 87075; 87086; 87101; 87205; 89050; 93005; 93010; 93306; 96374; 96375; 99291; J0610; J0696; J1265; J1815; J2270; J2405; J3490; J7030; J7060; J7614; P9047; S0119

== ENCOUNTER 2019-06-09 15:51 | Inpatient (IN) | payer MEDICARE ==
[2019-06-09] MEDS ORDERED: NORMAL SALINE 1000 ML 1,000 ML IV ONE (16:45)
--- NOTE | 2019-06-09 16:59 | ER Document Report ---
ED General - General Chief Complaint: Abnormal Lab Results Stated Complaint: ABNORMAL LABS Time Seen by Provider: 06/09/19 16:37 Notes: Patient sent here from [facility] where he is currently being rehabbed. Family says that there was concern about some of his lab tests. Patient has a history of severe cirrhosis and liver failure. He has had trouble with his electrolytes and other labs in the past. Yesterday, he had outpatient labs showing a hemoglobin of 10.5, sodium 130, creatinine 3.22 and BUN 61. His creatinine and BUN 2 weeks ago were 47 and 1.76 respectively. Patient is not complaining of anything particular at this time. Has not been vomiting. Not having any fever. TRAVEL OUTSIDE OF THE [place] IN LAST 30 DAYS: Yes - Related Data Allergies/Adverse Reactions: No Known Allergies Allergy (Verified 05/23/19 14:25) Past Medical History - Social History Smoking Status: Current Every Day Smoker Drug Abuse: None Family History: Reviewed & Not Pertinent Patient has suicidal ideation: No Patient has homicidal ideation: No - Past Medical History Cardiac Medical History: Reports: Hx Hypertension Pulmonary Medical History: Reports: Hx COPD GI Medical History: Reports: Hx Cirrhosis, Hx Gastroesophageal Reflux Disease, Hx Hepatitis - Hep. C, states received treatment for this Psychiatric Medical History: Reports: Hx Depression Infectious Medical History: Reports: Hx Hepatitis - Hep. C, states received treatment for this, Other - Cirrhosis of the liver and liver failure. Past Surgical History: Reports: Hx Abdominal Surgery - paracentesis, Hx Orthopedic Surgery - spinal surgery - Immunizations Hx Diphtheria, Pertussis, Tetanus Vaccination: No Review of Systems - Review of Systems Notes: CONSTITUTIONAL : Denies fever. CARDIOVASCULAR: Denies chest pain. RESPIRATORY: Denies cough, chest congestion, or shortness of breath. GASTROINTESTINAL: Complains of abdominal discomfort from his ascites, but not actual pain. Denies nausea, vomiting, or diarrhea. GENITOURINARY: Denies difficulty or painful urinating, urinary frequency, blood in urine. Physical Exam - Vital signs Vitals: Temp Pulse Resp BP Pulse Ox 98.4 F 94 10 L 87/52 L 100 06/09/19 15:55 06/09/19 15:55 06/09/19 15:55 06/09/19 15:55 06/09/19 15:55 Interpretation: Normal Notes: Slightly hypotensive, but not unusual in cirrhotic patients. Hemoglobin on this visit is 10.5, identical to the hemoglobin just 24 hours prior. PHYSICAL EXAMINATION: GENERAL: Rather emaciated appearing, but no acute distress. Vital signs normal except for blood pressure which is somewhat low, but not unusual for this patient. HEAD: Atraumatic, normocephalic. NECK: Normal range of motion, supple. LUNGS: Breath sounds clear and equal bilaterally. HEART: Regular rate and rhythm without murmurs heard. ABDOMEN: Moderate amount of ascitic fluid collected. Abdomen is somewhat tense to press. But not really tender. No guarding and no rebound. There is some erythema along the inferior aspect of the abdominal wall. Extremities: Patient has erythema of the lower legs bilaterally. Rather bright pink color. Course - Re-evaluation Re-evalutation: 06/09/19 18:45 Labs reviewed. Discussed the patient with his primary care physician, Dr. Truong, and patient will be put in the hospital for some saline infusion IV overnight. Went over the lab results with the patient. 06/09/19 18:46 Labs today are not significantly different from those done yesterday. BUN and creatinine are about the same. Hemoglobin is exactly the same. - Vital Signs Vital signs: Temp Pulse Resp BP Pulse Ox 98.0 F 99 16 90/58 L 96 06/10/19 04:00 06/10/19 07:41 06/10/19 07:41 06/10/19 04:00 06/10/19 07:41 - Laboratory Result Diagrams: 06/09/19 16:40 06/09/19 16:40 Laboratory results interpreted by me: 06/09/19 06/09/19 06/09/19 16:40 16:40 17:01 WBC 11.0 H RBC 3.86 L Hgb 10.5 L Hct 31.8 L RDW 15.2 H Seg Neutrophils % 79.9 H Lymphocytes % 6.1 L Absolute Neutrophils 8.8 H Sodium 130.4 L Potassium 5.3 H Carbon Dioxide 20 L BUN 61 H Creatinine 3.21 H Est GFR ( Amer) 23 L Est GFR (Non-Af Amer) 19 L Total Protein 6.1 L Albumin 3.0 L Urine Blood SMALL H Discharge - Discharge Clinical Impression: Cirrhosis of liver, Renal insufficiency, Ascites Condition: Stable Disposition: ADMITTED INPATIENT Admitting Provider: [facility] Unit Admitted: Medical Floor
[2019-06-09 17:05] LABS: ABSOLUTE BASOPHILS # (AUTO) 0.1 10^3/uL (0.0-0.2); ABSOLUTE EOSINOPHILS # (AUTO) 0.4 10^3/uL (0.0-0.6); ABSOLUTE LYMPHOCYTES (AUTO) 0.7 10^3/uL (0.5-4.7); ABSOLUTE MONOCYTES (AUTO) 1.1 10^3/uL (0.1-1.4); ABSOLUTE NEUT (AUTO) 8.8 10^3/uL (1.7-8.2); BASOPHILS % (AUTO) 0.6 % (0-2); EOSINOPHILS % (AUTO) 3.2 % (0-6); HEMATOCRIT 31.8 % (37.9-51.0); HEMOGLOBIN 10.5 g/dL (13.5-17.0); LYMPHOCYTES % (AUTO) 6.1 % (13-45); MEAN CORPUSCULAR HEMOGLOBIN 27.3 pg (27.0-33.4); MEAN CORPUSCULAR HGB CONC 33.1 g/dL (32.0-36.0); MEAN CORPUSCULAR VOLUME 82 fl (80-97); MONOCYTES % (AUTO) 10.2 % (3-13); PLATELET COUNT 259 10^3/uL (150-450); RED BLOOD COUNT 3.86 10^6/uL (4.35-5.55); RED CELL DISTRIBUTION WIDTH 15.2 % (11.5-14.0); SEGMENTED NEUTROPHILS % (AUTO) 79.9 % (42-78); TOTAL CELLS COUNTED % (AUTO) 100 %
[2019-06-09 17:20] LABS: ALANINE AMINOTRANSFERASE 28 U/L (21-72); ALKALINE PHOSPHATASE 49 U/L (38-126); ANION GAP 10 (5-19); ASPARTATE AMINO TRANSFERASE 44 U/L (17-59); BILIRUBIN,DIRECT 0.3 mg/dL (0.0-0.4); BILIRUBIN,TOTAL 0.6 mg/dL (0.2-1.3); BLOOD UREA NITROGEN 61 mg/dL (7-20); CALCIUM 8.5 mg/dL (8.4-10.2); CARBON DIOXIDE 20 mmol/L (22-30); CHLORIDE 100 mmol/L (98-107); GLUCOSE 106 mg/dL (75-110); POTASSIUM 5.3 mmol/L (3.6-5.0); TOTAL PROTEIN 6.1 g/dL (6.3-8.2)
[2019-06-09 17:43] LABS: APPEARANCE,URINE SLIGHTLY-CLOUDY; BILIRUBIN,URINE NEGATIVE (NEGATIVE); COLOR,URINE YELLOW; GLUCOSE, URINE NEGATIVE (NEGATIVE); KETONES,URINE NEGATIVE (NEGATIVE); LEUKOCYTE ESTERASE,URINE NEGATIVE (NEGATIVE); NITRITE,URINE NEGATIVE (NEGATIVE); PROTEIN,URINE NEGATIVE (NEGATIVE); URINE SPECIFIC GRAVITY 1.016; UROBILINOGEN,URINE NEGATIVE mg/dL (<2.0)
[2019-06-09 17:55] LABS: INTERNATIONAL RATION (INR) 1.12; PROTHROMBIN TIME 14.5 SEC (11.4-15.4)
[2019-06-09] MEDS ORDERED: ONDANSETRON 4 MG TAB.RAPDIS PO PRN (20:24)
[2019-06-09] MEDS: CIPROFLOXACIN HCL 500 MG TABLET PO SCH (21:49)
[2019-06-09] MEDS: OXYCODONE HCL SR 40 MG TABLET PO SCH (21:51)
[2019-06-09] MEDS: RINGERS SOLUTION,LACTATED 1,000 ML IV PRN (22:54)
[2019-06-09] MEDS: FLUTICASONE/UMECLIDIN/VILANTER 100-62.5-25 MCG/DOSE IH SCH (23:46)
[2019-06-10] MEDS: LEVALBUTEROL HCL NEB 0.63 MG/3 ML AMPUL NEB SCH ×4 (02:06→19:24)
[2019-06-10] MEDS: OXYCODONE HCL IR 5 MG TABLET PO PRN ×3 (04:42→19:44)
[2019-06-10] MEDS: OXYCODONE HCL SR 40 MG TABLET PO SCH ×3 (06:39→21:35)
[2019-06-10] MEDS: PANTOPRAZOLE SODIUM 40 MG TABLET.DR PO SCH (08:01)
[2019-06-10] MEDS: FLUTICASONE/UMECLIDIN/VILANTER 100-62.5-25 MCG/DOSE IH SCH (09:21)
[2019-06-10] MEDS: MIDODRINE HCL 5 MG TABLET PO SCH ×3 (09:21→18:49)
[2019-06-10] MEDS: CIPROFLOXACIN HCL 500 MG TABLET PO SCH ×2 (09:23→21:35)
[2019-06-10 13:30] LABS: ALBUMIN 2.8 g/dL (3.5-5.0); ALKALINE PHOSPHATASE 37 U/L (38-126); ANION GAP 9 (5-19); ASPARTATE AMINO TRANSFERASE 28 U/L (17-59); BILIRUBIN,DIRECT 0.3 mg/dL (0.0-0.4); BILIRUBIN,TOTAL 0.6 mg/dL (0.2-1.3); BLOOD UREA NITROGEN 59 mg/dL (7-20); CALCIUM 8.4 mg/dL (8.4-10.2); CARBON DIOXIDE 23 mmol/L (22-30); CHLORIDE 101 mmol/L (98-107); GLUCOSE 96 mg/dL (75-110)
[2019-06-10] MEDS ORDERED: MAGNESIUM HYDROXIDE SUSP 30 ML UDCUP PO PRN (16:32)
--- NOTE | 2019-06-10 20:53 | PDOC H&P ---
History of Present Illness Admission Date/PCP: 06/09/19 19:00 LORRI ROMERO MD History of Present Illness: ROSHAN JACOBSEN JR is a 69 year old male, He has liver cirrhosis complicated with recurrent ascites requiring large-volume paracentesis, he was recently discharged from this hospital when he had spontaneous bacterial peritonitis, he was discharged to the intermediate for rehabilitation. He apparently was transferred from the intermediate to the hospital for evaluation of abnormal lab data., His creatinine is 3.2,2 weeks ago it was 1.7. Patient with liver cirrhosis and ascites, there is tremendous third spacing some degree of azotemia is expected in this patient. He follows with Dr. Mcclain and he has a scheduled intermittent abdominal paracentesis was brought in for observation and for slight hydration,I saw the patient on the floor is at his baseline he is not sy mptomatic he wants to go back home he does not want to return back to the intermediate Past Medical History Cardiac Medical History: Reports: Hypertension Pulmonary Medical History: Reports: Chronic Obstructive Pulmonary Disease (COPD) GI Medical History: Reports: Cirrhosis, Gastroesophageal Reflux Disease, Hepatitis - Hep. C, states received treatment for this Psychiatric Medical History: Reports: Depression Past Surgical History Past Surgical History: Reports: Orthopedic Surgery - spinal surgery Social History Smoking Status: Current Every Day Smoker Cigarettes Packs Per Day: 0.5 Number of Years Smokin Last Time Smoked: 06/09/19 Frequency of Alcohol Use: None Hx Recreational Drug Use: No Drugs: None Hx Prescription Drug Abuse: No - Advance Directive Resuscitation Status: Full Code Family History Family History: Reviewed & Not Pertinent Parental Family History Reviewed: Yes Children Family History Reviewed: Yes Sibling(s) Family History Reviewed.: Yes Medication/Allergy Home Medications: Ciprofloxacin HCl [Cipro 500 mg Tablet] 500 mg PO BID 06/09/19 Fluticasone/Umeclidin/Vilanter [Trelegy 100-62.5-25 Mcg Ellipta 14 Dose/Dpi] 1 puff IH DAILY 06/09/19 Levalbuterol HCl [Xopenex Neb 0.63 mg/3 ml Ampul] 0.63 mg NEB RTQ6 06/09/19 Midodrine HCl [Proamatine 5 Mg Tablet] 5 mg PO TID 06/09/19 Ondansetron HCl [Zofran 4 mg Tablet] 1 tab PO Q4HP PRN 06/09/19 Oxycodone HCl [Oxy-Ir 5 mg Tablet] 15 mg PO Q4HP PRN 06/09/19 Oxycodone HCl [Oxycontin Sr 40 mg Tablet] 40 mg PO Q8 06/09/19 Pantoprazole Sodium [Protonix [address] Tablet] 40 mg PO QAM 06/09/19 Allergies/Adverse Reactions: No Known Allergies Allergy (Verified 05/23/19 14:25) Review of Systems Eyes: ABSENT: visual disturbances Ears: ABSENT: hearing changes Cardiovascular: ABSENT: chest pain, dyspnea on exertion, edema, orthropnea, palpitations Respiratory: ABSENT: cough, hemoptysis Gastrointestinal: PRESENT: abdominal pain Genitourinary: ABSENT: dysuria, hematuria Musculoskeletal: ABSENT: joint swelling Integumentary: ABSENT: rash, wounds Neurological: ABSENT: abnormal gait, abnormal speech, confusion, dizziness, focal weakness, syncope Psychiatric: ABSENT: anxiety, depression, homidical ideation, suicidal ideation Endocrine: ABSENT: cold intolerance, heat intolerance, menstrual abnormalities, polydipsia, polyuria Hematologic/Lymphatic: ABSENT: easy bleeding, easy bruising, lymphadenopathy Physical Exam Vital Signs: Temp Pulse Resp BP Pulse Ox 98.4 F 78 16 94/59 L 97 06/10/19 19:54 06/10/19 19:54 06/10/19 19:54 06/10/19 19:54 06/10/19 19:54 Intake & Output 06/09/19 06/10/19 06/11/19 06:59 06:59 06:59 Intake Total 1120 Output Total 200 Balance 920 Weight 65.2 kg General appearance: PRESENT: no acute distress Eye exam: PRESENT: PERRLA Respiratory exam: PRESENT: clear to auscultation sudha Cardiovascular exam: PRESENT: +S1, +S2 GI/Abdominal exam: PRESENT: ascites, soft Neurological exam: PRESENT: alert Results Laboratory Results: 06/09/19 16:40 06/10/19 12:58 06/10/19 12:58 Sodium 132.9 L Potassium 5.0 Chloride 101 Carbon Dioxide 23 Anion Gap 9 BUN 59 H Creatinine 3.13 H Est GFR ( Amer) 24 L Est GFR (Non-Af Amer) 20 L Glucose 96 Calcium 8.4 Total Bilirubin 0.6 AST 28 Alkaline Phosphatase 37 L Total Protein 6.0 L Albumin 2.8 L Assessment & Plan - Diagnosis (1) Acute kidney injury Is this a current diagnosis for this admission?: Yes Plan: Patient admitted to the hospital for slow hydration, overall prognosis very poor this patient (2) Liver cirrhosis Qualifiers: Hepatic cirrhosis type: unspecified hepatic cirrhosis Ascites presence: with ascites Qualified Code(s): K74.60 - Unspecified cirrhosis of liver; R18.8 - Other ascites Is this a current diagnosis for this admission?: Yes
--- NOTE | 2019-06-10 21:03 | PDOC DISCHARGE SUMMARY ---
General - Admit/Disc Date/PCP Admission Date/Primary Care Provider: 06/09/19 19:00 LORRI ROMERO MD Discharge Date: 06/10/19 - Discharge Diagnosis (1) Acute kidney injury Is this a current diagnosis for this admission?: Yes (2) Liver cirrhosis Is this a current diagnosis for this admission?: Yes - Additional Information Resuscitation Status: Full Code Home Medications: Ciprofloxacin HCl [Cipro 500 mg Tablet] 500 mg PO BID 06/09/19 Fluticasone/Umeclidin/Vilanter [Trelegy 100-62.5-25 Mcg Ellipta 14 Dose/Dpi] 1 puff IH DAILY 06/09/19 Levalbuterol HCl [Xopenex Neb 0.63 mg/3 ml Ampul] 0.63 mg NEB RTQ6 06/09/19 Midodrine HCl [Proamatine 5 mg Tablet] 5 mg PO TID 06/09/19 Ondansetron HCl [Zofran 4 mg Tablet] 1 tab PO Q4HP PRN 06/09/19 Oxycodone HCl [Oxy-Ir 5 mg Tablet] 15 mg PO Q4HP PRN 06/09/19 Oxycodone HCl [Oxycontin Sr 40 mg Tablet] 40 mg PO Q8 06/09/19 Pantoprazole Sodium [Protonix [address] Tablet] 40 mg PO QAM 06/09/19 History of Present Illness History of Present Illness: ROSHAN JACOBSEN JR is a 69 year old male, He has liver cirrhosis complicated with recurrent ascites requiring large-volume paracentesis, he was recently disc harged from this hospital when he had spontaneous bacterial peritonitis, he was discharged to the custodial for rehabilitation. He apparently was transferred from the custodial to the hospital for evaluation of abnormal lab data., His creatinine is 3.2,2 weeks ago it was 1.7. Patient with liver cirrhosis and ascites, there is tremendous third spacing some degree of azotemia is expected in this patient. He follows with Dr. Mcclain and he has a scheduled intermittent abdominal paracentesis was brought in for observation and for slight hydration,I saw the patient on the floor is at his baseline he is not symptomatic he wants to go back home he does not want to return back to the custodial Hospital Course Hospital Course: Patient was admitted for observation, is at his baseline, he had fluid hydration, slight improvement in the kidney function the acute kidney injury is from third spacing from the ascites, patient wants to go home, He is not symptomatic I do not see why he cannot go home Physical Exam Vital Signs: Temp Pulse Resp BP Pulse Ox 98.4 F 78 16 94/59 L 97 06/10/19 19:54 06/10/19 19:54 06/10/19 19:54 06/10/19 19:54 06/10/19 19:54 Intake & Output 06/09/19 06/10/19 06/11/19 06:59 06:59 06:59 Intake Total 1120 Output Total 200 Balance 920 Weight 65.2 kg General appearance: PRESENT: no acute distress Eye exam: PRESENT: PERRLA Respiratory exam: PRESENT: clear to auscultation sudha Cardiovascular exam: PRESENT: +S1, +S2 GI/Abdominal exam: PRESENT: soft Neurological exam: PRESENT: alert Results Laboratory Results: 06/09/19 16:40 06/10/19 12:58 06/10/19 12:58 Sodium 132.9 L Potassium 5.0 Chloride 101 Carbon Dioxide 23 Anion Gap 9 BUN 59 H Creatinine 3.13 H Est GFR ( Amer) 24 L Est GFR (Non-Af Amer) 20 L Glucose 96 Calcium 8.4 Total Bilirubin 0.6 AST 28 Alkaline Phosphatase 37 L Total Protein 6.0 L Albumin 2.8 L Qualifiers - * PATIENT BEING DISCHARGED WITH ANY OF THE FOLLOWING DIAGNOSIS: No VTE patient discharged on overlapping Therapy?: No Reason(s) for not prescribing Overlap Therapy:: Not indicated Stroke Pt being discharged on Anti-thrombolytic therapy?: No Reason(s) for not prescribing Anti-thrombolytic therapy:: Not indicated Stroke Pt being discharged on Anti-coagulation therapy?: No Reason(s) for not prescribing Anti-coagulation therapy:: Not indicated Stroke Pt being discharged on Statins?: No Reason(s) for not prescribing Statins therapy:: Not indicated MA Pt being discharged on Aspirin therapy?: No Reason(s) for not prescribing Aspirin therapy:: Not indicated MA Pt being discharged on Statins?: No Reason(s) for not prescribing Statin therapy:: Not indicated MA Pt discharged ACEI/ARBS?: No Reason(s) for not prescribing ACEI/ARBS:: Not indicated Acute Heart Failure - Is this a Heart Failure Patient?: No e) For LVEF <35%, discharged on Aldosterone antagonist?: N/A (LVEF > or = 35%)
[2019-06-11] MEDS: LEVALBUTEROL HCL NEB 0.63 MG/3 ML AMPUL NEB SCH ×3 (02:08→13:56)
[2019-06-11] MEDS: OXYCODONE HCL SR 40 MG TABLET PO SCH ×2 (05:58→13:39)
[2019-06-11] MEDS: RINGERS SOLUTION,LACTATED 1,000 ML IV PRN (08:39)
[2019-06-11] MEDS: PANTOPRAZOLE SODIUM 40 MG TABLET.DR PO SCH (08:42)
[2019-06-11] MEDS: MIDODRINE HCL 5 MG TABLET PO SCH ×2 (10:53→13:39)
[2019-06-11] MEDS: FLUTICASONE/UMECLIDIN/VILANTER 100-62.5-25 MCG/DOSE IH SCH (10:53)
[2019-06-11] MEDS: CIPROFLOXACIN HCL 500 MG TABLET PO SCH (10:53)
[2019-06-11 12:05] VITALS: BP 90/58
== END 2019-06-11 14:39 | DRG 683 ==
LOC: ER 15:51 → EH 19:00 → 5 22:24
PROVIDERS: ADMIT Internal Medicine; ATTEND Internal Medicine
DX: N17.9 Acute kidney failure, unspecified (principal); R18.8 Other ascites; K74.60 Unspecified cirrhosis of liver; I10 Essential (primary) hypertension; J44.9 Chronic obstructive pulmonary disease, unspecified; K21.9 Gastro-esophageal reflux disease without esophagitis; F32.9 Major depressive disorder, single episode, unspecified; F17.210 Nicotine dependence, cigarettes, uncomplicated; Z79.899 Other long term (current) drug therapy; Z79.891 Long term (current) use of opiate analgesic
CPT/HCPCS: 36415; 80053; 81001; 83690; 85025; 85610; 87040; 87070; 96360; 96361; 99284; J3490; J7030; J7120; J7614

== ENCOUNTER 2019-06-24 08:20 | Day surgery (SDC) | payer MEDICARE ==
[2019-06-24 08:57] LABS: HEMATOCRIT 32.9 % (37.9-51.0); HEMOGLOBIN 10.7 g/dL (13.5-17.0); MEAN CORPUSCULAR HEMOGLOBIN 26.7 pg (27.0-33.4); MEAN CORPUSCULAR HGB CONC 32.6 g/dL (32.0-36.0); MEAN CORPUSCULAR VOLUME 82 fl (80-97); PLATELET COUNT 272 10^3/uL (150-450); RED BLOOD COUNT 4.02 10^6/uL (4.35-5.55); RED CELL DISTRIBUTION WIDTH 15.7 % (11.5-14.0); WHITE BLOOD COUNT 11.9 10^3/uL (4.0-10.5)
[2019-06-24 09:00] LABS: INTERNATIONAL RATION (INR) 1.21; PROTHROMBIN TIME 15.4 SEC (11.4-15.4)
[2019-06-24 09:01] LABS: PARTIAL THROMBOPLASTIN TIME 36.1 SEC (23.5-35.8)
[2019-06-24 09:09] LABS: BLOOD UREA NITROGEN 95 mg/dL (7-20)
[2019-06-24 13:20] LABS: FLUID APPEARANCE CLEAR; FLUID COLOR YELLOW; FLUID SOURCE ASCITES; FLUID TYPE PERITONEAL; FLUID VISCOSITY LIQUID
[2019-06-24 13:39] VITALS: BP 89/61
--- NOTE | 2019-06-24 14:12 | RADIOLOGY REPORT (SQ) ---
EXAM DESCRIPTION: U/S ABD PARACENTESIS COMPLETED DATE/TIME: 06/24/2019 11:53 am REASON FOR STUDY: ASCITES, CIRRHOSIS OF THE LIVER R18.8 OTHER ASCITES K74.69 OTHER CIRRHOSIS OF LI GEOVANNY COMPARISON: None. LIMITATIONS: None. PROCEDURE: Procedure, risks, benefit, and alternative explained to patient who then gave written con sent. The right lower abdominal wall marked using ultrasound guidance. A time-out was called for co rrect marking verification. Abdomen prepped and draped using sterile technique. Local anesthesia ach ieved using 10 ml of 1% lidocaine injection. A 6fr [id number]-Kasodmiu set was introduced into the perit marie cavity. Fluid was drained. The catheter was removed and entry site was covered with sterile b andage. No immediate complications noted. Images acquired during the procedure were stored on PACS. FINDINGS: ENTRY SITE: Right lower quadrant. FLUID VOLUME: 6000 mL. FLUID ANALYSIS: Straw-colored. OTHER: Fluid sent to the lab for testing. IMPRESSION: SUCCESSFUL ULTRASOUND GUIDED PARACENTESIS. COMMENT: Patient medication list reviewed:Yes- Quality ID# [id number]:Eligible professional attests to docu menting in the medical record they obtained, updated, or reviewed the patient's current medications. TECHNICAL DOCUMENTATION: JOB ID: [id number] [employer]- All Rights Reserved Reading location - IP/workstation name: [email or web address]
== END 2019-06-24 14:00 | disposition home or self-care (01) ==
LOC: RAD 08:20
PROVIDERS: ATTEND Internal Medicine Gastroenterology
DX: R18.8 Other ascites (principal); K74.69 Other cirrhosis of liver; F17.210 Nicotine dependence, cigarettes, uncomplicated; Z79.899 Other long term (current) drug therapy; Z79.51 Long term (current) use of inhaled steroids; J43.9 Emphysema, unspecified
CPT/HCPCS: 36415; 87205; 87070; 84520; 82565; 85027; 85610; 85730; 89050; 87075; 49083; P9047